=== PATIENT | male | born 1970 | race Caucasian/White ===

== ENCOUNTER 2017-03-02 00:54 | Inpatient (IN) | payer OTHER, MEDICARE ==
[~2017-03-02] VITALS: Ht 180.3 cm; Wt 84.5 kg
[2017-03-02] VITALS (8 sets, daily range): BP systolic 132–188; BP diastolic 72–96; PULSE 61–93; RESP 16–18; TEMP 96–98.5; O2SAT 95–100
[~2017-03-02 00:54] MED LIST: ASPI81 PO; SYNT25TA PO
[2017-03-02] MEDS ORDERED: METO25TA3 PO (01:01)
[2017-03-02] MEDS ORDERED: METF1000 PO (01:01)
[2017-03-02] MEDS ORDERED: PLAV75TA29 PO (01:01)
[2017-03-02] MEDS ORDERED: LISI-519 PO (01:01)
[2017-03-02] MEDS ORDERED: SYNT25TA PO (01:01)
[2017-03-02] MEDS ORDERED: MORPHINE SULFATE 4 MG/ML INJ IV PUSH ONE (01:15)
[2017-03-02] MEDS ORDERED: NALOXONE HCL 0.4 MG/ML AMP IV PRN (02:30)
[2017-03-02] MEDS ORDERED: GLUCAGON 1 MG/ML VIAL OTHER PRN ×2 (02:30→09:45)
[2017-03-02] MEDS ORDERED: DEXT 5%-NACL 0.45% 1000 ML INJ 1,000 ML IV SCH (02:30)
[2017-03-02] MEDS ORDERED: SODIUM CHLORIDE 0.9% FLUSH 10 ML FLUSH IV FLUSH PRN (02:30)
[2017-03-02] MEDS ORDERED: DEXTROSE 50% IN WATER 50 ML VIAL(D50) IV PUSH PRN ×2 (02:30→09:45)
[2017-03-02] MEDS: LEVOFLOXACIN 750 MG PREMIX INJ 150 ML IV SCH (02:37)
[2017-03-02] MEDS ORDERED: LEVOFLOXACIN 750 MG PREMIX INJ 150 ML IV ONE (02:45)
--- NOTE | 2017-03-02 02:49 | PD ---
HPI Chief Complaint: Injury Time Seen by Provider: 01:35 Travel History International Travel<30 days: No Contact w/Intl Traveler<30days: No Traveled to known affect area: No History of Present Illness HPI Patient is a 46-year-old male who was transferred from the hospital for admission to the hospital. Patient was accepted by Dr. Henderson after patient had a workup that for the hospital today. As per patient, he was taking out the trash today, reports that he was turned away a broken birdbath when the birdbath fell and landed on his left foot. xray of his foot showed comminuted fracture of the distal phalanx second toe. There is altered bone densities distal phalanx of the middle toe suspicious for fracture. [facility] did talk to Dr. Almonte with podiatry, patient was transferred to [facility] for surgical intervention [facility] Past Medical History Blood Disorders: No Anxiety: Yes Cancer: No Cardiovascular Problems: No High Cholesterol: Yes Diabetes: Yes Patient Takes Glucophage: Yes (02/29/16 1800) Endocrine: Yes Gastrointestinal Disorders: Yes (COLOSTOMY WITH REVERSAL) Genitourinary: No Hypertension: Yes Immune Disorder: No Musculoskeletal: Yes (LEFT SHOULDER DISLOCATES EASILY) Neurologic: No Psychiatric: Yes Reproductive: No Respiratory: No Thyroid Disease: Yes Tetanus Vaccination: < 5 Years Influenza Vaccination: No Past Surgical History Abdominal Surgery: Yes (APPY WITH COLOSTOMY) Cardiac Surgery: Yes (1 STENT RCA) Pacemaker: No Other Surgery: Yes Social History Alcohol Use: Yes (DAILY) Tobacco Use: Yes (1/2 PPD) Substance Use: No Allergies-Medications (Allergen,Severity, Reaction): Coded Allergies: No Known Allergies (Verified , 03/02/17) Reported Meds & Prescriptions Reported Meds & Active Scripts Active Reported Metformin (Metformin HCl) 1,000 Mg Tab 1,000 Mg PO BIDPC With meals Lisinopril 5 Mg Tab 5 Mg PO DAILY Metoprolol Tartrate 25 Mg Tab 12.5 Mg PO BID Plavix (Clopidogrel Bisulfate) 75 Mg Tab 75 Mg PO DAILY Synthroid (Levothyroxine Sodium) 25 Mcg Tab 25 Mcg PO DAILY Review of Systems General / Constitutional: No: Fever Eyes: No: Visual changes HENT: No: Headaches Cardiovascular: No: Chest Pain or Discomfort Respiratory: No: Shortness of Breath Gastrointestinal: No: Abdominal Pain Genitourinary: No: Dysuria Musculoskeletal: Positive: Pain (left foot pain) Skin: No Rash Neurologic: No: Weakness Psychiatric: No: Depression Endocrine: No: Polydipsia Hematologic/Lymphatic: No: Easy Bruising Physical Exam Narrative GENERAL: nad SKIN: Focused skin assessment warm/dry. HEAD: Atraumatic. Normocephalic. EYES: Pupils equal and round. No scleral icterus. No injection or drainage. ENT: No nasal bleeding or discharge. Mucous membranes pink and moist. NECK: Trachea midline. No JVD. CARDIOVASCULAR: Regular rate and rhythm. No murmur appreciated. RESPIRATORY: No accessory muscle use. Clear to auscultation. Breath sounds equal bilaterally. GASTROINTESTINAL: Abdomen soft, non-tender, nondistended. Hepatic and splenic margins not palpable. MUSCULOSKELETAL: Patient with crush injuries to his left foot, digits #2 and 3 with partial amputations, pulses intact, neurvascularly intact NEUROLOGICAL: Awake and alert. 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 Sign Installer / Telemetry .CONTINUOUS (03/02/17 02:16) Diet Npo (03/02/17 Breakfast) Sodium Chloride 0.9% Flush (Ns Flush) (03/02/17 02:30) Sodium Chloride 0.9% Flush (Ns Flush) (03/02/17 09:00) Basic Metabolic Panel (Bmp) (03/03/17 06:00) Complete Blood Count With Diff (03/03/17 06:00) Prothrombin Time / Inr (Pt) (03/03/17 06:00) Naloxone Inj (Narcan Inj) (03/02/17 02:30) Inpatient Certification (03/02/17 ) Morphine Inj (Morphine Inj) (03/02/17 02:30) Levofloxacin 750 Mg Premix Inj (Levaquin (03/02/17 02:30) Consult Podiatry (03/02/17 ) Dext 5%-Nacl 0.45% 1000 Ml Inj (D5w-1/2 (03/02/17 02:30) Bedside Glucose ALEXANDR.AC&HS (03/02/17 02:19) Blood Glucose Goal (Criteria) (03/02/17 02:19) Hypoglycemia 51 - 69 Mg/Dl (03/02/17 02:19) Hypoglycemia 50 Mg/Dl Or < (03/02/17 02:19) Notify Dr: Other (03/02/17 02:19) Dextrose 50% In Blu (Vial) Inj (D50w (Vi (03/02/17 02:30) Glucagon Inj (Glucagon Inj) (03/02/17 02:30) Admit Order (Ed Use Only) (03/02/17 02:29) MDM Medical Decision Making Medical Screen Exam Complete: Yes Emergency Medical Condition: Yes Interpretation(s) Vital Signs Date Time Temp Pulse Resp B/P Pulse Ox O2 Delivery O2 Flow Rate FiO2 03/02/17 01:59 77 16 158/90 96 Room Air 03/02/17 00:56 98.5 71 16 188/96 100 Differential Diagnosis Open fracture to left foot, digit #2 and 3 Narrative Course 46 old male who was sent to the hospital by [facility] for admission to dr henderson service as well as for surgical intervention by Dr. Vo with podiatry for up until fractures to left foot digits 2 and 3 Call made to who accepts patient to service Call made to Dr. Vo who has patient scheduled for OR at 2 PM tomorrow please refer to [facility] ER records for full medical workup Diagnosis Primary Impression: Open toe fracture Qualified Code: S92.912B - Open fracture of phalanx of toe of left foot, physeal involvement unspecified, unspecified toe, initial encounter Admitting Information Admitting Physician Requests: Admit Maine Phelan DO Mar 02, 2017 02:48
[2017-03-02] MEDS: MORPHINE SULFATE 4 MG/ML INJ IV PUSH PRN ×5 (03:52→22:27)
[2017-03-02] MEDS ORDERED: LORazepam 2 MG/ML VIAL IV PUSH ONE (05:30)
--- NOTE | 2017-03-02 08:29 | RADRPT ---
EXAM DATE/TIME: 03/02/2017 08:10 [place] COMPARISON: No previous studies available for comparison. INDICATIONS : [place] bird bath fell on foot last night. MEDICAL HISTORY : Hypertension. Diabetes mellitus type II. Smoker. SURGICAL HISTORY : None. ENCOUNTER: Initial ACUITY: 2 days PAIN SCORE: 8/10 LOCATION: Left foot, second and third digits. FINDINGS: Bony detail is obscured by saturated bandage material. There do appear to be tuft fractures involving distal phalanges. The bandages will need to be removed for accurate evaluation. The foot appears int act otherwise. CONCLUSION: Suspect tuft fractures involving toes of the left foot. Saturated bandages will need to be removed to evaluate the bony elements adequately. Benjamin Das MD on March 02, 2017 at 8:26 Board Certified Radiologist. This report was verified electronically.
[2017-03-02] MEDS: SODIUM CHLORIDE 0.9% FLUSH 10 ML FLUSH IV FLUSH SCH ×2 (09:00→21:00)
--- NOTE | 2017-03-02 09:28 | HHI.HP ---
[facility] Service [facility] Hospitalists Primary Care Physician [facility] Admission Diagnosis open toe fractures Diagnoses: (1) Open toe fracture (2) Traumatic rhabdomyolysis (3) Diabetes mellitus, type II (4) Hypertension associated with diabetes (5) Hypothyroidism Chief Complaint: Left painful toes Travel History International Travel<30 Days: No Contact w/Intl Traveler <30 Da: No Traveled to Known Affected Are: No History of Present Illness 46 year-old male with a history of diabetes type 2, hypertension, hypothyroidism was transferred from [facility] to [place] for evaluation of fracture left toes s/p mechanical injury. Patient states around 6PM yesterday as he was carrying a birdbath, he broke down and fell landing on his left foot. the patient was immediate and rated 10/10 intensity however there was no initial bleeding; which started after the patient started walking on his feet.He initially went to [facility] then was advised to go to [facility] . Was seen by podiatry x-ray of the foot showed comminuted fracture of the distal phalanx second toe which patient was advised and transferred to [place] post surgical intervention. He Denies any chest pain or shortness of breath Review of Systems Other 12 systems reviewed and are negative except for the one mentioned in history of present illness Past Family Social History Past Medical History Anxiety CAD High Cholesterol Diabetes: Yes Hypertension Hypothyroidism Musculoskeletal: Yes (LEFT SHOULDER DISLOCATES EASILY) Past Surgical History Cardiac stents 1 STENT RCA) Colostomy reversal Reported Medications Metformin (Metformin HCl) 1,000 Mg Tab 1,000 Mg PO BIDPC With meals Lisinopril 5 Mg Tab 5 Mg PO DAILY Metoprolol Tartrate 25 Mg Tab 12.5 Mg PO BID Plavix (Clopidogrel Bisulfate) 75 Mg Tab 75 Mg PO DAILY Synthroid (Levothyroxine Sodium) 25 Mcg Tab 25 Mcg PO DAILY Allergies: Coded Allergies: No Known Allergies (Verified , 03/02/17) Family History Both parents have hypertension, coronary disease, myocardial infarction. Father and 2 sisters with history of thyroid cancer Social History Alcohol Use: Yes (DAILY) Tobacco Use: Yes (1/2 PPD) Substance Use: No Physical Exam Vital Signs Vital Signs Date Time Temp Pulse Resp B/P Pulse Ox O2 Delivery O2 Flow Rate FiO2 03/02/17 07:07 77 16 143/74 95 Room Air 03/02/17 03:00 75 18 154/92 99 Room Air 03/02/17 01:59 77 16 158/90 96 Room Air 03/02/17 00:56 98.5 71 16 188/96 100 Physical Exam GENERAL: This is a well-nourished, well-developed patient, in no apparent distress. SKIN: No rashes, ecchymoses or lesions. Cool and dry. HEAD: Atraumatic. Normocephalic. No temporal or scalp tenderness. EYES: Pupils equal round and reactive. Extraocular motions intact. No scleral icterus. No injection or drainage. ENT: Nose without bleeding, purulent drainage or septal hematoma. Throat without erythema, tonsillar hypertrophy or exudate. Uvula midline. Airway patent. NECK: Trachea midline. No JVD or lymphadenopathy. Supple, nontender, no meningeal signs. CARDIOVASCULAR: Regular rate and rhythm without murmurs, gallops, or rubs. RESPIRATORY: Clear to auscultation. Breath sounds equal bilaterally. No wheezes , rales, or rhonchi. GASTROINTESTINAL: Abdomen soft, non-tender, nondistended. No hepato-splenomegaly , or palpable masses. No guarding. MUSCULOSKELETAL: Extremities without clubbing, cyanosis, or edema. No joint tenderness, effusion, or edema noted. No calf tenderness. Dressing over the left foot-neurovascular intact NEUROLOGICAL: Awake and alert. Cranial nerves II through XII intact. Motor and sensory grossly within normal limits. Five out of 5 muscle strength in all muscle groups. Normal speech. Imaging Last Impressions Foot X-Ray 03/02/17 0000 Signed Impressions: Service Date/Time: February 08:10 - CONCLUSION: Suspect tuft fractures involving toes of the left foot. Saturated bandages will need to be removed to evaluate the bony elements adequately. Benjamin Das MD Assessment and Plan Problem List: (1) Open toe fracture ICD Code: S92.919B Status: Acute (2) Traumatic rhabdomyolysis ICD Code: T79.6XXA Status: Resolved (3) Hypertension associated with diabetes ICD Code: E11.59 Status: Chronic (4) Hypothyroidism ICD Code: E03.9 Status: Chronic (5) Diabetes mellitus, type II ICD Code: E11.9 Status: Chronic (6) Tobacco abuse ICD Code: Z72.0 Status: Chronic (7) Tobacco abuse counseling ICD Code: Z71.6 Status: Resolved (8) Alcohol abuse ICD Code: F10.10 Status: Chronic Assessment and Plan 46-year-old man with Open to fractures: s/p mechanical injury; foot x-ray noted and reviewed by me with finding of Suspect tuft fractures involving toes of the left foot. Podiatry consultation pending for possible amputation. Keep nothing by mouth, IV fluid hydration, analgesic/narcotics when necessary. Hold Plavix and continue empiric IV antibiotic Traumatic rhabdomyolysis: Secondary to mechanical injury, continue aggressive IV fluid hydration and monitor CK Diabetes type 2: Hold oral hypoglycemic agent, start insulin sliding scale with fingerstick blood glucose monitoring. Check A1c Hypertension associated with diabetes type 2: Resume beta robert and lisinopril Hypothyroidism: Resume Synthroid Tobacco abuse: Tobacco counseling was provided, start nicotine patch Alcohol abuse: Patient was counseled, start rally pack,CIWA protocol, seizure precautions. ETOH counsellor consulted DVT prophylaxis: Postprocedure per podiatry Code Status Full code Discussed Condition With Patient Physician Certification 2 Midnight Certification Type: Admission for Inpatient Services Order for Inpatient Services The services are ordered in accordance with Medicare regulations or non- Medicare payer requirements, as applicable. In the case of services not specified as inpatient-only, they are appropriately provided as inpatient services in accordance with the 2-midnight benchmark. Estimated LOS (days): 2 days is the estimated time the patient will need to remain in the hospital, assuming treatment plan goals are met and no additional complications. Post-Hospital Plan: Not yet determined Problem Qualifiers (1) Open toe fracture: Qualified Code: S92.912B - Open fracture of phalanx of toe of left foot, physeal involvement unspecified, unspecified toe, initial encounter Fran Rey MD Mar 02, 2017 09:28
[2017-03-02] MEDS ORDERED: LORazepam 2 MG TAB PO PRN (09:45)
[2017-03-02] MEDS ORDERED: FLUMAZENIL 0.5 MG/5 ML VIAL IV PUSH PRN (09:45)
[2017-03-02] MEDS ORDERED: LORazepam 1 MG TAB PO PRN (09:45)
[2017-03-02] MEDS ORDERED: RESP: ALBUTEROL 2.5 MG/IPRATROPIUM 0.5 MG NEB (PRN) NEB (09:45)
[2017-03-02] MEDS ORDERED: LORazepam 2 MG/ML VIAL IV PUSH PRN ×4 (09:45)
[2017-03-02] MEDS ORDERED: ENALAPRILAT 1.25 MG/ML VIAL IV PUSH PRN (09:45)
[2017-03-02] MEDS: NICOTINE 21 MG/24 HR PATCH T-DERMAL SCH (11:00)
[2017-03-02] MEDS: REMOVE OLD PATCH T-DERMAL SCH (11:00)
[2017-03-02] MEDS: INSULIN ASPART SUPPLEMENTAL SCALE SQ SCH ×3 (11:02→21:00)
[2017-03-02] MEDS ORDERED: NEOSTIGMINE 3 MG/3 ML SYR IV ONE (12:00)
[2017-03-02] MEDS ORDERED: PROPOFOL 200 MG/20 ML AMP IV ONE (12:00)
[2017-03-02] MEDS ORDERED: ONDANSETRON HCL 4 MG/2 ML VIAL IV PUSH ONE (12:00)
[2017-03-02] MEDS ORDERED: BUPIVACAINE HCL PF 0.25% 30 ML VIAL ONE (13:47)
[2017-03-02] MEDS ORDERED: MIDAZOLAM HCL 2 MG/2 ML VIAL ONE (14:01)
[2017-03-02] MEDS ORDERED: fentaNYL CITRATE 250 MCG/5 ML AMP ONE (14:01)
[2017-03-02] MEDS ORDERED: FAMOTIDINE 20 MG/2 ML VIAL ONE (14:02)
[2017-03-02] MEDS ORDERED: ceFAZolin 2 GM PREMIX 50 ML ONE (14:04)
[2017-03-02] MEDS ORDERED: NEOMYCIN/POLYMYXIN 1 ML G.U. IRRIGANT TOPICAL ONE (14:36)
[2017-03-02] MEDS ORDERED: DO NOT ADM ANY ANTICOAGULANT DRUGS PRN (15:15)
[2017-03-02] MEDS: SODIUM CHLOR 0.9% 1000 ML INJ 1,000 ML IV SCH ×2 (16:00→18:45)
[2017-03-02] MEDS: METOPROLOL TARTRATE 25 MG TAB PO SCH (22:22)
[2017-03-03] VITALS: BP 139/85; PULSE 75; RESP 18; TEMP 97.7; O2SAT 100
[2017-03-03] MEDS: ACETAMINOPHEN/HYDROcodone 325 MG/7.5 MG TAB PO PRN ×4 (00:28→16:34)
[2017-03-03] MEDS: SODIUM CHLOR 0.9% 1000 ML INJ 1,000 ML IV SCH ×2 (02:45→10:45)
[2017-03-03] MEDS: LEVOFLOXACIN 750 MG PREMIX INJ 150 ML IV SCH (03:42)
[2017-03-03] MEDS: MORPHINE SULFATE 4 MG/ML INJ IV PUSH PRN (03:43)
[2017-03-03 04:00] VITALS: BP 116/76; PULSE 63; RESP 16; TEMP 96.5; O2SAT 100
[2017-03-03] MEDS ORDERED: LEVOTHYROXINE SODIUM 25 MCG TAB PO SCH (06:00)
[2017-03-03] MEDS: INSULIN ASPART SUPPLEMENTAL SCALE SQ SCH ×2 (07:00→12:53)
[2017-03-03 07:17] LABS: AUTOMATED NEUTROPHIL # 3.2 TH/MM3 (1.8-7.7); BASOPHIL % 0.6 % (0.0-2.0); EOSINOPHIL # 0.1 TH/MM3 (0-0.4); EOSINOPHIL % 2.5 % (0.0-4.0); LYMPH % 25.4 % (9.0-44.0); LYMPHOCYTE # 1.3 TH/MM3 (1.0-4.8); MEAN CELL VOLUME 94.7 FL (80.0-100.0); MEAN CORPUSCULAR HEMOGLOBIN 31.6 PG (27.0-34.0); MEAN CORPUSCULAR HGB CONC 33.3 % (32.0-36.0); MONO % 8.1 % (0.0-8.0); NEUT % 63.4 % (16.0-70.0); PLATELET COUNT 81 TH/MM3 (150-450); RED BLOOD COUNT 4.02 MIL/MM3 (4.50-5.90); RED CELL DISTRIBUTION WIDTH 14.1 % (11.6-17.2)
[2017-03-03 07:27] LABS: INTERNATIONAL NORMALIZED RATIO 1.1 RATIO; PROTHROMBIN TIME - PATIENT 12.4 SEC (9.8-11.6)
[2017-03-03 07:45] LABS: BICARBONATE 30.1 MEQ/L (21.0-32.0); POTASSIUM 3.5 MEQ/L (3.5-5.1)
[2017-03-03 07:56] LABS: HEMO FLAGS AUTO DIFF
[2017-03-03 07:57] LABS: PLATELET ESTIMATE SMEAR LOW (NORMAL); PLATELET MORPHOLOGY NORMAL (NORMAL); SCAN/DIFF AUTO DIFF CONFIRMED
[2017-03-03 08:00] VITALS: BP 121/72; PULSE 78; RESP 20; TEMP 97.6; O2SAT 99
[2017-03-03] MEDS: METOPROLOL TARTRATE 25 MG TAB PO SCH (08:17)
[2017-03-03] MEDS: NICOTINE 21 MG/24 HR PATCH T-DERMAL SCH (08:18)
[2017-03-03] MEDS: REMOVE OLD PATCH T-DERMAL SCH (08:18)
[2017-03-03] MEDS: SODIUM CHLORIDE 0.9% FLUSH 10 ML FLUSH IV FLUSH SCH (08:24)
[2017-03-03 08:25] VITALS: O2SAT 98
[2017-03-03] MEDS ORDERED: LISINOPRIL 5 MG TAB PO SCH (09:00)
[2017-03-03] MEDS ORDERED: MULTIVITAMINS/MINERALS THERAPEUTIC TAB PO SCH (09:00)
[2017-03-03] MEDS ORDERED: FOLIC ACID 1 MG TAB PO SCH (09:00)
[2017-03-03] MEDS ORDERED: THIAMINE HCL 100 MG TAB PO SCH (09:00)
[2017-03-03] MEDS ORDERED: PERI8.6T PO (10:59)
[2017-03-03] MEDS ORDERED: HYDR-3580 PO (10:59)
--- NOTE | 2017-03-03 11:05 | HHI.PR ---
Subjective Remarks Follow-up toes fractures status post amputations 03/03/17-patient seen and examined, status post second and third left toe amputated; pains currently controlled and patient is afebrile. No acute event overnight. Objective Vitals Vital Signs Date Time Temp Pulse Resp B/P Pulse Ox O2 Delivery O2 Flow Rate FiO2 03/03/17 08:25 98 Nasal Cannula 2.00 03/03/17 08:00 97.6 78 20 121/72 99 03/03/17 04:00 96.5 63 16 116/76 100 03/03/17 00:00 97.7 75 18 139/85 100 03/02/17 20:00 97.6 93 16 132/72 100 03/02/17 18:14 100 Nasal Cannula 2.00 03/02/17 17:49 18 03/02/17 17:23 96.0 61 18 137/85 100 03/02/17 15:45 66 12 142/91 99 Nasal Cannula 2 03/02/17 15:30 88 12 158/98 99 Nasal Cannula 2 03/02/17 15:11 97.2 80 15 145/96 99 Nasal Cannula 2 03/02/17 11:03 74 16 154/86 97 Room Air I/O 03/02/17 03/02/17 03/02/17 03/03/17 03/03/17 03/03/17 07:00 15:00 23:00 07:00 15:00 23:00 Intake Total 1280 ml 480 ml Output Total 20 ml Balance 1260 ml 480 ml Intake Oral 780 ml 480 ml IV Total 100 ml Other 400 ml Output Urine Total 0 ml Stool Total 0 ml Estimated Blood Loss 20 ml # Voids 3 # Bowel Movements 0 Result Diagram: 03/03/17 0647 03/03/17 0647 Imaging Last Impressions Foot X-Ray 03/02/17 0000 Signed Impressions: Service Date/Time: February 08:10 - CONCLUSION: Suspect tuft fractures involving toes of the left foot. Saturated bandages will need to be removed to evaluate the bony elements adequately. Benjamin Das MD Objective Remarks GENERAL: NAD SKIN: Warm and dry. HEAD: Normocephalic. EYES: No scleral icterus. No injection or drainage. NECK: Supple, trachea midline. No JVD or lymphadenopathy. CARDIOVASCULAR: Regular rate and rhythm without murmurs, gallops, or rubs. RESPIRATORY: Breath sounds equal bilaterally. No accessory muscle use. GASTROINTESTINAL: Abdomen soft, non-tender, nondistended. MUSCULOSKELETAL: No cyanosis, or edema. dressing over left foot BACK: Nontender without obvious deformity. No CVA tenderness. Procedures Left foot I&D; 2nd and 3rd left toes amputated 03/02/17 A/P Problem List: (1) Open toe fracture ICD Code: S92.919B Status: Acute (2) Traumatic rhabdomyolysis ICD Code: T79.6XXA Status: Resolved (3) Hypertension associated with diabetes ICD Code: E11.59 Status: Chronic (4) Hypothyroidism ICD Code: E03.9 Status: Chronic (5) Diabetes mellitus, type II ICD Code: E11.9 Status: Chronic (6) Tobacco abuse ICD Code: Z72.0 Status: Chronic (7) Tobacco abuse counseling ICD Code: Z71.6 Status: Resolved (8) Alcohol abuse ICD Code: F10.10 Status: Chronic Assessment and Plan 46-year-old man with Open to fractures: s/p mechanical injury; foot x-ray noted and reviewed by me with finding of Suspect tuft fractures involving toes of the left foot. s/p Left foot I&D; 2nd and 3rd left toes amputated 03/02/17. management per Podiatry continue with analgesic/narcotics when necessary. Resume Plavix and continue empiric IV antibiotic. Will need Bactrim DS x 14 days on discharge Traumatic rhabdomyolysis: Secondary to mechanical injury, continue aggressive IV fluid hydration and monitor CK Diabetes type 2: Hold oral hypoglycemic agent, continue insulin sliding scale with fingerstick blood glucose monitoring. A1c pending Hypertension associated with diabetes type 2:continue beta robert and lisinopril Hypothyroidism: continue Synthroid Tobacco abuse: Tobacco counseling was provided, on nicotine patch Alcohol abuse: Patient was counseled, continue rally pack,CIWA protocol, seizure precautions. ETOH counsellor consulted DVT prophylaxis: Postprocedure per podiatry Patient's condition tremendously improved therefore he will be discharged home Discharge Planning Discharge patient to home Condition on discharge: Improved ADA Diet as tolerated Ad Nichole activity Rx written: See EMR Follow-up with primary care physician in one week Follow with podiatry in 1 week wound dressing change per podiatry Problem Qualifiers (1) Open toe fracture: Qualified Code: S92.912B - Open fracture of phalanx of toe of left foot, physeal involvement unspecified, unspecified toe, initial encounter Fran Rey MD Mar 03, 2017 11:05
[2017-03-03 12:00] VITALS: BP 118/64; PULSE 70; RESP 20; TEMP 97.6; O2SAT 97
--- NOTE | 2017-03-03 20:16 | MP ---
cc: CHRIS BLACK DPM DATE OF SURGERY 03/02/17 DATE OF 70 PREOPERATIVE DIAGNOSIS Left foot 2nd and 3rd digit open toe fractures. POSTOPERATIVE DIAGNOSIS Left foot 2nd and 3rd digit open toe fractures. PROCEDURE 1. Incision and debridement left foot. 2. Amputation left partial second digit. 3. Left amputation third partial digit SURGEON Dr. Logan Black [employer] Staff. COMPLICATIONS None. SPECIMEN SENT Left 2nd and 3rd digit to pathology ANESTHESIA General with 16 mL of 0.25 Marcaine plain injected postoperatively. TOURNIQUET TIME 250 mmHg left ankle for 22 minutes INDICATIONS This patient is a 46 year old male with a history of diabetes and hypertension who dropped a cement bird feeder on his left foot on 03/02/17 and sustained open fractures of the distal digits of the left 2nd and 3rd toe with significant bruising of the third digit with questionable salvage. The patient understands the procedure performed today as well as potential risk and complications. All questions were answered. Risks and benefits discussed at length. Consent was signed preoperatively. PROCEDURE IN DETAIL The patient was brought to the operating room, placed on the operating table in supine position. Pneumatic ankle tourniquet was placed about the left ankle. The foot was scrubbed, prepped and draped in usual sterile fashion. Once the patient was anesthetized, first attention was directed in which a fish mouth incision was made around the middle phalanx of both the second and third digits of the left foot and disarticulated at the proximal interphalangeal joints and the toes were sent to pathology for evaluation. Assessing the left fourth digit, the toe had mild purpura and questionable but there were no open fractures. I will leave that toe alone and see how it does postoperatively, but the second and third digits did need amputation. Again, copious irrigation with one liter of antibiotic impregnated saline was used to flush the digits with good soft tissue closure over the remaining proximal phalanx. Vicryl was used to close subcutaneous tissue and nylon was used to close the skin. The skin was well approximated. Again, the fourth digit was left alone. Adaptic soaked in Betadine soaked 4x4s, dry 4x4s, Kerlix, cast padding and Idris was used to wrap the foot. 16 mL of 0.25 Marcaine plain was injected around the area in a Fraire block format of the second and third rays that are proximal to the metatarsal phalangeal joint and the patient handled anesthesia well. DON Finney /3:07 PM /7:58 PM S[facility]
== END 2017-03-03 16:50 | disposition home or self-care (01) | DRG 505 ==
LOC: NEPE 00:54 → NEDA 02:30 → NEDH 06:12 → N06B 14:20
PROVIDERS: ADMIT Hospitalist; ATTEND Hospitalist
PROC: 0Y6U0Z2 Detachment at Left 3rd Toe, Mid, Open Approach (ICD-10-PCS; 2017-03-02)
PROC: 0Y6S0Z2 Detachment at Left 2nd Toe, Mid, Open Approach (ICD-10-PCS; principal; 2017-03-02 14:06)
DX: S92.532B Displaced fracture of distal phalanx of left lesser toe(s), initial encounter for open fracture (principal); I10 Essential (primary) hypertension; T79.6XXA Traumatic ischemia of muscle, initial encounter; W22.8XXA Striking against or struck by other objects, initial encounter; Y92.9 Unspecified place or not applicable; Y93.89 Activity, other specified; E03.9 Hypothyroidism, unspecified; E78.00 Pure hypercholesterolemia, unspecified; F41.9 Anxiety disorder, unspecified; I25.10 Atherosclerotic heart disease of native coronary artery without angina pectoris; Z95.5 Presence of coronary angioplasty implant and graft; Z79.02 Long term (current) use of antithrombotics/antiplatelets; E11.9 Type 2 diabetes mellitus without complications; Z79.84 Long term (current) use of oral hypoglycemic drugs; F10.10 Alcohol abuse, uncomplicated; F17.210 Nicotine dependence, cigarettes, uncomplicated
CPT/HCPCS: 73630; 80048; 82550; 82948; 85025; 85610; 88305; 88311; 96374; J0690; J1815; J1956; J2060; J2250; J2270; J2405; J2710; J3010; J7030; L3260

== ENCOUNTER 2017-10-26 11:25 | Observation (INO) | payer OTHER, MEDICARE ==
[~2017-10-26] VITALS: Ht 180.3 cm; Wt 70.0 kg
[~2017-10-26 11:25] MED LIST changes: -ASPI81 PO; +HYDR-3580 PO; +LISI-519 PO; +METF1000 PO; +METO25TA3 PO; +PERI8.6T PO; +PLAV75TA29 PO
[2017-10-26 11:36] VITALS: BP 144/99; PULSE 103; RESP 16; TEMP 98.9; O2SAT 98
[2017-10-26] MEDS ORDERED: SODIUM CHLOR 0.9% 1000 ML INJ 1,000 ML IV SCH (12:10)
[2017-10-26] MEDS ORDERED: SODIUM CHLORIDE 0.9% FLUSH 10 ML FLUSH IV FLUSH PRN ×2 (12:15→16:30)
--- NOTE | 2017-10-26 12:23 | PD ---
HPI Chief Complaint: Abdominal Pain Time Seen by Provider: 12:06 Travel History International Travel<30 days: No Contact w/Intl Traveler<30days: No Traveled to known affect area: No History of Present Illness HPI 47-year-old male presents to the emergency department with complaint of left lower quadrant abdominal pain 3 days. Worsening of abdominal pain today with vomiting this morning. Arrived via EMS. History of pancreatitis. EMS gave Zofran prior to arrival with relief of nausea. Reports lightheadedness and dizziness. Said he felt like he was going to pass out. Denies dysuria or urinary frequency. Denies dysuria. Says he felt chest tightness while he was on the ambulance. Denies chest pain or shortness of breath at this time. Reports feeling like his heart is fluttering. Rates pain 7/10. His been taking Aleve for symptom management. Describes it as a sharp pain. Reports occasional alcohol use. Drank alcohol last night. Denies illicit drug use. Reports tobacco use. Denies history of abdominal surgeries. No known allergies. Primary care provider is the [facility]. History of pancreatitis, insulin-dependent diabetes mellitus, hypothyroidism, hypertension, DC with stent placement. Has no other medical complaints. No other modifying factors or associated signs and symptoms. PFSH Past Medical History Blood Disorders: No Anxiety: Yes Cancer: No Cardiovascular Problems: Yes (HTN, CORONARY STENT ) High Cholesterol: Yes Diabetes: Yes Patient Takes Glucophage: Yes (metformin ) Endocrine: Yes Gastrointestinal Disorders: Yes (COLOSTOMY WITH REVERSAL) Genitourinary: No Hypertension: Yes Immune Disorder: No Musculoskeletal: Yes (LEFT SHOULDER DISLOCATES EASILY) Neurologic: No Psychiatric: Yes Reproductive: No Respiratory: No Thyroid Disease: Yes ?: Not Past Surgical History Abdominal Surgery: Yes (APPY WITH COLOSTOMY) Cardiac Surgery: Yes (1 STENT RCA) Pacemaker: No Other Surgery: Yes Social History Alcohol Use: Yes (hx of daily use. now occ ) Tobacco Use: Yes (1/2 PPD) Substance Use: No Allergies-Medications (Allergen,Severity, Reaction): Coded Allergies: No Known Allergies (Verified Adverse Reaction, Unknown, 10/26/17) Reported Meds & Prescriptions Reported Meds & Active Scripts Active Puja-Colace (Sennosides-Docusate Sodium) 8.6-50 Mg Tab 1 Tab PO BID PRN Hydrocodone-Acetaminophen 7.5-325 mg Tab 1 Tab PO Q6H PRN Reported Metformin (Metformin HCl) 1,000 Mg Tab 1,000 Mg PO BIDPC With meals Lisinopril 5 Mg Tab 5 Mg PO DAILY Metoprolol Tartrate 25 Mg Tab 12.5 Mg PO BID Plavix (Clopidogrel Bisulfate) 75 Mg Tab 75 Mg PO DAILY Synthroid (Levothyroxine Sodium) 25 Mcg Tab 25 Mcg PO DAILY Review of Systems Except as stated in HPI: all other systems reviewed are Neg Physical Exam Narrative GENERAL: Well-nourished, well-developed male patient, in no acute distress; afebrile SKIN: Warm and dry. HEAD: Atraumatic. Normocephalic. EYES: Pupils equal and round. No scleral icterus. No injection or drainage. ENT: Mucosa pink and moist. Airway patent. NECK: Trachea midline. CARDIOVASCULAR: Regular rate and rhythm. No murmur appreciated. RESPIRATORY: No accessory muscle use. Clear to auscultation. Breath sounds equal bilaterally. GASTROINTESTINAL: Abdomen soft, tenderness on palpation to eft lower quadrant, nondistended. Hepatic and splenic margins not palpable. Bowel sounds are active 4 quadrants. Nonrigid. No guarding. MUSCULOSKELETAL: No obvious deformities. No clubbing. No cyanosis. No edema. NEUROLOGICAL: Awake and alert. Oriented 3. No obvious cranial nerve deficits. Motor grossly within normal limits. Normal speech. PSYCHIATRIC: Appropriate mood and affect; insight and judgment normal. Data Data Last Documented VS Vital Signs Date Time Temp Pulse Resp B/P (MAP) Pulse Ox O2 Delivery O2 Flow Rate FiO2 10/26/17 11:36 98.9 103 16 144/99 (114) 98 Room Air Orders Orders Complete Blood Count With Diff (10/26/17 12:10) Comprehensive Metabolic Panel (10/26/17 12:10) Lipase (10/26/17 12:10) Urinalysis - C+S If Indicated (10/26/17 12:10) Iv Access Insert/Monitor (10/26/17 12:10) Ecg Monitoring (10/26/17 12:10) Oximetry (10/26/17 12:10) Sodium Chlor 0.9% 1000 Ml Inj (Ns 1000 M (10/26/17 12:10) Sodium Chloride 0.9% Flush (Ns Flush) (10/26/17 12:15) Electrocardiogram (10/26/17 12:24) Troponin I (10/26/17 12:26) Ct Abd/Pel W Iv Contrast(Rout) (10/26/17 14:07) Ketorolac Inj (Toradol Inj) (10/26/17 14:30) Iohexol 350 Inj (Omnipaque 350 Inj) (10/26/17 15:23) Admit Order (Ed Use Only) (10/26/17 16:12) Labs Laboratory Tests Test 10/26/17 10:40 10/26/17 12:28 10/26/17 12:50 Troponin I LESS THAN 0.02 NG/ML White Blood Count 7.7 TH/MM3 Red Blood Count 4.49 MIL/MM3 Hemoglobin 14.3 GM/DL Hematocrit 40.7 % Mean Corpuscular Volume 90.6 FL Mean Corpuscular Hemoglobin 31.9 PG Mean Corpuscular Hemoglobin Concent 35.2 % Red Cell Distribution Width 14.1 % Platelet Count 160 TH/MM3 Mean Platelet Volume 8.1 FL Neutrophils (%) (Auto) 70.6 % Lymphocytes (%) (Auto) 20.7 % Monocytes (%) (Auto) 7.3 % Eosinophils (%) (Auto) 0.8 % Basophils (%) (Auto) 0.6 % Neutrophils # (Auto) 5.4 TH/MM3 Lymphocytes # (Auto) 1.6 TH/MM3 Monocytes # (Auto) 0.6 TH/MM3 Eosinophils # (Auto) 0.1 TH/MM3 Basophils # (Auto) 0.0 TH/MM3 CBC Comment DIFF FINAL Differential Comment Blood Urea Nitrogen 9 MG/DL Creatinine 0.82 MG/DL Random Glucose 271 MG/DL Total Protein 7.4 GM/DL Albumin 4.0 GM/DL Calcium Level 9.4 MG/DL Alkaline Phosphatase 119 U/L Aspartate Amino Transf (AST/SGOT) 21 U/L Alanine Aminotransferase (ALT/SGPT) 26 U/L Total Bilirubin 0.7 MG/DL Sodium Level 134 MEQ/L Potassium Level 4.6 MEQ/L Chloride Level 99 MEQ/L Carbon Dioxide Level 27.3 MEQ/L Anion Gap 8 MEQ/L Estimat Glomerular Filtration Rate 101 ML/MIN Lipase 55 U/L Urine Color YELLOW Urine Turbidity CLEAR Urine pH 5.5 Urine Specific [place] 1.037 Urine Protein TRACE mg/dL Urine Glucose (UA) 1000 mg/dL Urine Ketones 10 mg/dL Urine Occult Blood NEG Urine Nitrite NEG Urine Bilirubin NEG Urine Urobilinogen LESS THAN 2.0 MG/DL Urine Leukocyte Esterase NEG Urine RBC LESS THAN 1 /hpf Urine WBC 1 /hpf Urine Squamous Epithelial Cells <1 /hpf Urine Mucus FEW /lpf Microscopic Urinalysis Comment CULT NOT INDICATED MDM Medical Decision Making Medical Screen Exam Complete: Yes Emergency Medical Condition: Yes Medical Record Reviewed: Yes Differential Diagnosis Pancreatitis, diverticulitis, gastritis, chest pain Narrative Course 47-year-old male arrives via EMS with left lower quadrant abdominal pain. Reports chest tightness while on the ambulance. Denies chest pain or shortness of breath at this time. Has history of DC with stent placement. I discussed the patient with Dr. Erickson and he agrees with my plan of care. CBC, CMP, lipase , troponin, EKG, chest x-ray, normal saline bolus 1238: EKG was normal sinus rhythm; without ST elevation or depression; reviewed by Dr. Erickson. 1410: CBC unremarkable. Troponin less than 0.02. Lipase 55. Glucose 271. Urinalysis without signs of infection. 1605: CT abdomen/pelvis concludes: Abdomen/Pelvis CT 10/26/17 1407 Signed Impressions: Service Date/Time: October 15:12 - CONCLUSION: 1. There is an 8.5 cm ovoid low density collection at the expected location of the tail of the pancreas. This most likely represents a pancreatic pseudocyst given the pancreatic findings characteristic of chronic pancreatitis including atrophy, duct dilatation, and calcification. There are no imaging findings to suggest that it is infected. 2. 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 There are multiple enlarged perigastric collateral blood vessels. 1. Benjamin Major MD I discussed CT findings with the patient and provided the patient with a copy of the CT report. I discussed being discharged home and outpatient follow-up in regards to chest pain and the patient opted to be admitted to the chest pain center for continued treatment and evaluation. Physician Communication Physician Communication [employer] DRIVER Diagnosis Primary Impression: Abdominal pain, left lower quadrant Additional Impression: Chest pain Qualified Codes: R07.9 - Chest pain, unspecified Admitting Information Admitting Physician Requests: Observation Fidelia Flores INSPECTOR [employer]YS Oct 26, 2017 12:23
[2017-10-26 13:12] LABS: AUTOMATED NEUTROPHIL # 5.4 TH/MM3 (1.8-7.7); BASOPHIL % 0.6 % (0.0-2.0); EOSINOPHIL # 0.1 TH/MM3 (0-0.4); EOSINOPHIL % 0.8 % (0.0-4.0); HEMATOCRIT 40.7 % (39.0-51.0); HEMO FLAGS DIFF FINAL; LYMPH % 20.7 % (9.0-44.0); LYMPHOCYTE # 1.6 TH/MM3 (1.0-4.8); MEAN CELL VOLUME 90.6 FL (80.0-100.0); MEAN CORPUSCULAR HEMOGLOBIN 31.9 PG (27.0-34.0); MEAN CORPUSCULAR HGB CONC 35.2 % (32.0-36.0); MONO % 7.3 % (0.0-8.0); NEUT % 70.6 % (16.0-70.0); PLATELET COUNT 160 TH/MM3 (150-450); RED BLOOD COUNT 4.49 MIL/MM3 (4.50-5.90); RED CELL DISTRIBUTION WIDTH 14.1 % (11.6-17.2); WHITE BLOOD COUNT 7.7 TH/MM3 (4.0-11.0)
[2017-10-26 13:25] LABS: BLOOD, URINE NEG (NEG); COMMENT (UR) CULT NOT INDICATED; CULTURE IF INDICATED CULT NOT INDICATED; GLUCOSE,URINE 1000 mg/dL (NEG); KETONE, URINE 10 mg/dL (NEG); MUCUS URINE FEW /lpf (OCC); NITRITE,URINE NEG (NEG); PH, URINE 5.5 (5.0-8.5); SQUAMOUS EPITHELIAL CELL URINE <1 /hpf (0-5); URINE COLOR YELLOW (YELLW/STRAW)
[2017-10-26 13:29] LABS: ANION GAP 8 MEQ/L (5-15); AST (GOT) 21 U/L (15-37); BICARBONATE 27.3 MEQ/L (21.0-32.0); BLOOD UREA NITROGEN 9 MG/DL (7-18); CHLORIDE 99 MEQ/L (98-107); GLOMERULAR FILTRATION RATE 101 ML/MIN (>89); POTASSIUM 4.6 MEQ/L (3.5-5.1); SODIUM (NA) 134 MEQ/L (136-145)
[2017-10-26 13:32] LABS: ALKALINE PHOSPHATASE 119 U/L (45-117); ALT (GPT) 26 U/L (12-78); TOTAL BILIRUBIN ADULT 0.7 MG/DL (0.2-1.0)
[2017-10-26] MEDS ORDERED: KETOROLAC TROMETHAMINE 30 MG/ML (IVP) VIAL IV PUSH ONE (14:30)
[2017-10-26] MEDS ORDERED: IOHEXOL 350 MG/ML 10 ML VIAL (for RAD DIAG) IVCONTRAST ONE (15:23)
--- NOTE | 2017-10-26 15:47 | RADRPT ---
EXAM DATE/TIME: 10/26/2017 15:12 [facility] COMPARISON: No previous studies available for comparison. INDICATIONS : Left upper quadrant pain. IV CONTRAST: 82 cc Omnipaque 350 (iohexol) IV ORAL CONTRAST: No oral contrast ingested. RADIATION DOSE: 6.23 CTDIvol (mGy) MEDICAL HISTORY : Hypertension. Cardiovascular disease Pancreatitis. SURGICAL HISTORY : None. ENCOUNTER: Initial ACUITY: 3 days PAIN SCALE: 6/10 LOCATION: Left upper quadrant TECHNIQUE: Volumetric scanning of the abdomen and pelvis was performed. Using automated exposure control and ad justment of the mA and/or kV according to patient size, radiation dose was kept as low as reasonably achievable to obtain optimal diagnostic quality images. DICOM format image data is available electro nically for review and comparison. FINDINGS: LOWER LUNGS: The visualized lower lungs are clear. LIVER: Homogeneous density without lesion. There is no dilation of the biliary tree. No calcified gallston es. SPLEEN: Normal size without lesion. PANCREAS: The pancreas is abnormal. It is atrophic with little normal pancreatic tissue visualized. There are d iffuse incre calcifications. The main pancreatic duct is dilated in the body measuring up to 8 mm. Th ere is an ovoid low-density collection occupying the location of the tail of the pancreas and measuri ng 8.5 x 4.1 cm. It also abuts the right greater curvature of the stomach. It contains no air and the re are no surrounding inflammatory changes. KIDNEYS: Normal in size and shape. There is no mass, stone or hydronephrosis. ADRENAL GLANDS: Within normal limits. VASCULAR: There is no aortic aneurysm. There is mild atherosclerotic disease. Enlarged collateral blood vessels are present around the stomach and there is high-grade stenosis versus occlusion of the splenic vein . BOWEL/MESENTERY: The stomach and small bowel demonstrate no acute finding. There has been prior surgery in the sigmoid colon with a bowel staple line visualized. The segment is enlarged. There is a large amount of stool throughout the colon. No free air or free fluid is present. ABDOMINAL WALL: Postsurgical changes are present with small fat-containing periumbilical hernia. RETROPERITONEUM: There is no lymphadenopathy. BLADDER: No wall thickening or mass. REPRODUCTIVE: Within normal limits. INGUINAL: There is no lymphadenopathy or hernia. MUSCULOSKELETAL: There is degenerative changes of the lumbar spine with pars defects at L5. CONCLUSION: 1. There is an 8.5 cm ovoid low density collection at the expected location of the tail of the pancre as. This most likely represents a pancreatic pseudocyst given the pancreatic findings characteristic of chronic pancreatitis including atrophy, duct dilatation, and calcification. There are no imaging f indings to suggest that it is infected. 2. 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 There are multiple enlarge d perigastric collateral blood vessels. 1. Benjamin Major MD on October 26, 2017 at 15:39 Board Certified Radiologist. This report was verified electronically.
[2017-10-26] MEDS ORDERED: GLUCAGON 1 MG/ML VIAL OTHER PRN (16:30)
[2017-10-26] MEDS ORDERED: DEXTROSE 50% IN WATER 50 ML VIAL(D50) IV PUSH PRN (16:30)
[2017-10-26] MEDS ORDERED: RESP: ALBUTEROL 2.5 MG/3 ML NEB (PRN) NEB (16:30)
[2017-10-26] MEDS ORDERED: ONDANSETRON HCL 4 MG/2 ML VIAL IV PUSH PRN (16:30)
[2017-10-26] MEDS ORDERED: NITROGLYCERIN 0.4 MG SL 25 TABS/BTL SL PRN (16:30)
[2017-10-26] MEDS ORDERED: ACETAMINOPHEN 500 MG CPLT PO PRN (16:30)
[2017-10-26] MEDS ORDERED: PILL SPLITTER OTHER PRN (16:45)
[2017-10-26] MEDS: INSULIN ASPART SUPPLEMENTAL SCALE SQ SCH ×2 (17:00→21:09)
--- NOTE | 2017-10-26 17:02 | EKG ---
Date Performed: 10/26/2017 Time Performed: 12:32:23 PTAGE: 47 years EKG: Sinus rhythm NORMAL ECG No significant change from prior electrocardiogram. PREVIOUS TRACING : 03/25/2011 06.08 DOCTOR: Maizn Talley Interpretating Date/Time 10/26/2017 17:01:02
[2017-10-26 17:47] LABS: CREATINE KINASE 122 U/L (39-308)
[2017-10-26 17:59] LABS: CKMB 1.3 NG/ML (0.5-3.6)
--- NOTE | 2017-10-26 18:58 | EKG ---
Date Performed: 10/26/2017 Time Performed: 16:51:59 PTAGE: 47 years EKG: Sinus rhythm NORMAL ECG No significant change from prior electrocardiogram. PREVIOUS TRACING : 10/26/2017 12.32 DOCTOR: Mazin Talley Interpretating Date/Time 10/26/2017 18:57:09
[2017-10-26 19:39] VITALS: BP 142/79; PULSE 76; RESP 18; TEMP 98.4; O2SAT 97
[2017-10-26] MEDS: METOPROLOL TARTRATE 25 MG TAB PO SCH (21:08)
[2017-10-26] MEDS: SODIUM CHLORIDE 0.9% FLUSH 10 ML FLUSH IV FLUSH SCH (21:08)
[2017-10-26 21:27] LABS: CREATINE KINASE 117 U/L (39-308)
[2017-10-26 21:39] LABS: CKMB 0.8 NG/ML (0.5-3.6)
[2017-10-26 23:35] VITALS: BP 132/81; PULSE 65; RESP 18; TEMP 98.1; O2SAT 98
[2017-10-27 03:41] VITALS: BP 130/74; PULSE 67; RESP 18; TEMP 98.1; O2SAT 98
[2017-10-27 07:08] VITALS: BP 132/84; PULSE 66; RESP 16; TEMP 98.2; O2SAT 96
--- NOTE | 2017-10-27 08:24 | HHI.HP ---
HPI Primary Care Physician [facility] Chief Complaint Chest tightness History of Present Illness 47-year-old male with history of type 2 diabetes insulin-dependent, coronary artery disease, and tobacco use presents to emergency room for further evaluation of chest tightness. Onset yesterday afternoon while riding bike developed dizziness, he stopped at closest fire station. Reporting heart pounding once arrived at fire station. Transported via [facility] to ER. On way to hospital developed left anterior chest tightness. Moderate severity. No radiation. Duration was constant. Associated symptoms initially included nausea, dyspnea, and diaphoresis. Associated symptoms lasted approximately 20 minutes. No known precipitating or relieving factors. Did not hurt to take a deep breath. No recent illness, fever, or coughing. Endorses similar pain in the past. Also reporting 3 days of generalized abdominal discomfort described as sharp. CT abdomen and pelvis completed in ER and was told to follow-up with PCP after discharge. Reports known pseudocyst in pancreas and was to have area biopsy last year. Unfortunately he missed that appointment. The rescheduled appointment is gradual for next month. Review of Systems General: No fatigue,weakness, fever, chills, or recent illness. Has been his general state of health. HEENT: No RODRIGUEZ CV: As stated above. No current chest pain, palpitations, or pressure. Dizziness has resolved. RESP: No SOB, cough, or recent URI GI: No nausea, vomiting, or bowel changes. History of pancreatitis. Known pseudocyst on pancreas. Missed appointment last November for biopsy. Follow-up appointment is scheduled for next month.. : No dysuria, urgency, frequency EXT: No lower leg edema MS: No discomfort or change in ROM NEURO: No difficulty with balance, LOC, motor/sensory deficits PSYCH: No anxiety, depression, or suicidal ideation. Endorses current situational stress over the past year, , 2 friends , and his dog . Endorses binge drinking to cope. SKIN: No rashes, no concerning lesions Past Family Social History Allergies: Coded Allergies: No Known Allergies (Verified Adverse Reaction, Unknown, 10/26/17) Past Medical History Pancreatitis, type 2 [id number], hypothyroidism, coronary artery disease, x1 cardiac stent, tobacco abuse, alcohol abuse Past Surgical History Cholecystectomy with reversal, appendectomy Reported Medications Reported Meds & Active Scripts Active Metformin (Metformin HCl) 1,000 Mg Tab 1,000 Mg PO BIDPC With meals Lisinopril 5 Mg Tab 5 Mg PO DAILY Metoprolol Tartrate 25 Mg Tab 12.5 Mg PO BID Synthroid (Levothyroxine Sodium) 25 Mcg Tab 25 Mcg PO DAILY Aspirin 81 mg by mouth daily Lantus 18 units daily at bedtime Statin medication daily name unknown Active Ordered Medications Current Medications Medications (Trade) Dose Ordered Sig/Sb Route Start Time Stop Time Status Last Admin (NS Flush) 2 ml UNSCH PRN IV FLUSH 10/26/17 12:15 (NS Flush) 2 ml UNSCH PRN IV FLUSH 10/26/17 16:30 (NS Flush) 2 ml BID IV FLUSH 10/26/17 21:00 10/26/17 21:08 (Tylenol) 500 mg Q4H PRN PO 10/26/17 16:30 10/26/17 21:10 (Zofran Inj) 4 mg Q6H PRN IV PUSH 10/26/17 16:30 (Nitrostat Sl) 0.4 mg Q5M PRN SL 10/26/17 16:30 10/26/17 22:10 (Aspirin) 325 mg DAILY PO 10/27/17 09:00 (D50w (Vial) Inj) 50 ml UNSCH PRN IV PUSH 10/26/17 16:30 (Glucagon Inj) 1 mg UNSCH PRN OTHER 10/26/17 16:30 (NovoLOG SUPPLEMENTAL SCALE) 1 ACHS SLIDING SCALE SQ 10/26/17 17:00 10/26/17 21:09 (Albuterol Neb) 2.5 mg Q2HR NEB PRN NEB 10/26/17 16:30 (Synthroid) 25 mcg DAILY PO 10/27/17 09:00 (Prinivil) 5 mg DAILY PO 10/27/17 09:00 (Lopressor) 12.5 mg BID PO 10/26/17 21:00 10/26/17 21:08 (Pill Splitter) 1 ea UNSCH PRN OTHER 10/26/17 16:45 Family History Positive for early onset cardiovascular disease. Father several myocardial infarctions beginning in his early 30s. Mother coronary bypass in her early 60s Social History Known coronary artery disease and diabetes. Reporting diabetes to be uncontrolled. On appropriate CHUCHO and statin therapy. Current smoker approximately one pack daily. Endorses intermittent binge drinking, followed by periods without alcohol. Single. Self-employed. Endorses an active lifestyle. Past cardiac testing Cardiac catheterization 2016 Dr. Yvonne Lewis-x1 cardiac stent placed RCA. Reports cardiac catheterization was completed due to abnormal nuclear cardiac test. Currently does not follow with a transport tank technician. Physical Exam Vital Signs Vital Signs Date Time Temp Pulse Resp B/P (MAP) Pulse Ox O2 Delivery O2 Flow Rate FiO2 10/27/17 07:08 98.2 66 16 132/84 (100) 96 10/27/17 03:41 98.1 67 18 130/74 (92) 98 10/27/17 01:11 21 10/26/17 23:35 98.1 65 18 132/81 (98) 98 10/26/17 19:39 98.4 76 18 142/79 (100) 97 10/26/17 17:02 10/26/17 11:36 98.9 103 16 144/99 (114) 98 Room Air Physical Exam GENERAL: Alert WN, WD, NAD, pleasant, male who appears older than stated age. HEAD: NC, AT EYES: Sclera clear, conjunctiva without injection ENT: Mucous membranes pink and moist NECK: Supple, no masses, trachea midline CV: RRR, without murmur, rub, gallop, no JVD, S1-S2 no S3-S4. No carotid bruits. RESP: Clear lungs throughout bilateral, no crackles, wheeze, rhonchi, symmetrical chest rise, nonlabored, able to speak in full sentences ABD: Soft, NT, ND, no masses, positive bowel tones EXT: Pulses +14, no dependent edema MS: Normal tone 4 extremities, no obvious deformities, full range of motion, left foot x2 amputated toes. NEURO: CN II through CN XII grossly intact, motor strength 5/5 PSYCH: A+O 3, pleasant affect, appropriate speech,mood, insight and judgment SKIN: Normal turgor, normal texture, no lesions, no rashes Laboratory Laboratory Tests Test 10/26/17 10:40 10/26/17 12:28 10/26/17 12:50 10/26/17 16:47 Troponin I LESS THAN 0.02 LESS THAN 0.02 White Blood Count 7.7 Red Blood Count 4.49 Hemoglobin 14.3 Hematocrit 40.7 Mean Corpuscular Volume 90.6 Mean Corpuscular Hemoglobin 31.9 Mean Corpuscular Hemoglobin Concent 35.2 Red Cell Distribution Width 14.1 Platelet Count 160 Mean Platelet Volume 8.1 Neutrophils (%) (Auto) 70.6 Lymphocytes (%) (Auto) 20.7 Monocytes (%) (Auto) 7.3 Eosinophils (%) (Auto) 0.8 Basophils (%) (Auto) 0.6 Neutrophils # (Auto) 5.4 Lymphocytes # (Auto) 1.6 Monocytes # (Auto) 0.6 Eosinophils # (Auto) 0.1 Basophils # (Auto) 0.0 CBC Comment DIFF FINAL Differential Comment Blood Urea Nitrogen 9 Creatinine 0.82 Random Glucose 271 Total Protein 7.4 Albumin 4.0 Calcium Level 9.4 Alkaline Phosphatase 119 Aspartate Amino Transf (AST/SGOT) 21 Alanine Aminotransferase (ALT/SGPT) 26 Total Bilirubin 0.7 Sodium Level 134 Potassium Level 4.6 Chloride Level 99 Carbon Dioxide Level 27.3 Anion Gap 8 Estimat Glomerular Filtration Rate 101 Lipase 55 Urine Color YELLOW Urine Turbidity CLEAR Urine pH 5.5 Urine Specific [place] 1.037 Urine Protein TRACE Urine Glucose (UA) 1000 Urine Ketones 10 Urine Occult Blood NEG Urine Nitrite NEG Urine Bilirubin NEG Urine Urobilinogen LESS THAN 2.0 Urine Leukocyte Esterase NEG Urine RBC LESS THAN 1 Urine WBC 1 Urine Squamous Epithelial Cells <1 Urine Mucus FEW Microscopic Urinalysis Comment CULT NOT INDICATED Total Creatine Kinase 122 Creatine Kinase MB 1.3 Test 10/26/17 20:10 Total Creatine Kinase 117 Creatine Kinase MB 0.8 Troponin I LESS THAN 0.02 Result Diagram: 10/26/17 1228 10/26/17 1228 Imaging Last Impressions Myocardial Perfusion Scan Nuc Med 10/27/17 0000 Signed Impressions: Service Date/Time: Friday, October 27, 2017 11:02 - CONCLUSION: No reversible perfusion defects to suggest ischemia. Normal ejection fraction. RISK CATEGORY : Low (<1%% Annual Mortality Rate) Fran Medrano MD Abdomen/Pelvis CT 10/26/17 1407 Signed Impressions: Service Date/Time: October 15:12 - CONCLUSION: 1. There is an 8.5 cm ovoid low density collection at the expected location of the tail of the pancreas. This most likely represents a pancreatic pseudocyst given the pancreatic findings characteristic of chronic pancreatitis including atrophy, duct dilatation, and calcification. There are no imaging findings to suggest that it is infected. 2. 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 There are multiple enlarged perigastric collateral blood vessels. 1. Benjamin Major MD Course EKG Normal sinus rhythm, normal axis, no ST or T-segment changes Caprini VTE Risk Assessment Caprini VTE Risk Assessment: No/Low Risk (score <= 1) Caprini Risk Assessment Model Point Value = 1 Point Value = 2 Point Value = 3 Point Value = 5 Age 41-60 Minor surgery BMI > 25 kg/m2 Swollen legs Varicose veins or History of unexplained or recurrent spontaneous Oral contraceptives or hormone replacement Sepsis (< 1 month) Serious lung disease, including pneumonia (< 1 month) Abnormal pulmonary function Acute myocardial infarction Congestive heart failure (< 1 month) History of inflammatory bowel disease Medical patient at bed rest Age 61-74 Arthroscopic surgery Major open surgery (> 45 min) Laparoscopic surgery (> 45 min) Malignancy Confined to bed (> 72 hours) Immobilizing plaster cast Central venous access Age >= 75 History of VTE Family history of VTE Factor V Leiden Prothrombin [id number] Lupus anticoagulant Anticardiolipin antibodies Elevated serum homocysteine Heparin-induced thrombocytopenia Other congenital or acquired thrombophilia Stroke (< 1 month) Elective arthroplasty Hip, pelvis, or leg fracture Acute spinal cord injury (< 1 month) Prophylaxis Regimen Total Risk Factor Score Risk Level Prophylaxis Regimen 0-1 Low Early ambulation 2 Moderate Order ONE of the following: *Sequential Compression Device (SCD) *Heparin 5000 units SQ BID 3-4 Higher Order ONE of the following medications: *Heparin 5000 units SQ TID *Enoxaparin/Lovenox 40 mg SQ daily (WT < 150 kg, CrCl > 30 mL/min) *Enoxaparin/Lovenox 30 mg SQ daily (WT < 150 kg, CrCl > 10-29 mL/min) *Enoxaparin/Lovenox 30 mg SQ BID (WT < 150 kg, CrCl > 30 mL/min) AND/OR *Sequential Compression Device (SCD) 5 or more Highest Order ONE of the following medications: *Heparin 5000 units SQ TID (Preferred with Epidurals) *Enoxaparin/Lovenox 40 mg SQ daily (WT < 150 kg, CrCl > 30 mL/min) *Enoxaparin/Lovenox 30 mg SQ daily (WT < 150 kg, CrCl > 10-29 mL/min) *Enoxaparin/Lovenox 30 mg SQ BID (WT < 150 kg, CrCl > 30 mL/min) AND *Sequential Compression Device (SCD) Assessment and Plan Assessment and Plan #1 Chest pain-admitted to chest pain center. Ruled out with 3 sets of EKGs, cardiac enzymes, monitor overnight. Seen and evaluated by Dr. Kel Guillaume. Discussed most likely will proceed with chemical stress test later this morning. Will attempt to obtain coronary catheterization medical records from [facility]. If stress test unremarkable, plan would be to discharge home with follow-up with PCP and reestablish with a transport tank technician. Patient agreeable to plan of care. #2 History of CAD-continue Metoprolol and aspirin. Discussed importance of following with a transport tank technician due to history of coronary artery disease. Patient verbalizes understanding. #3 Type II DM-SSI low dose coverage, upon discharge resume Lantus, metformin, and lisinopril #4 Tobacco use-strongly encouraged and stressed the importance of tobacco cessation. Instructed him to quit smoking. Informed of cardiovascular risk of tobacco, especially with known history of coronary artery disease. #5 Alcohol abuse-discussed current guidelines of alcohol use to be no more than 2 drinks daily, however with his history of pancreatitis and pseudocyst in pancreas he would benefit from alcohol abstinence. Patient verbalized understanding. Keep follow-up appointment with GI specialist next month to reassess pseudocyst and chronic pancreatitis. Katie Casillas Oct 27, 2017 08:24
[2017-10-27 08:31] VITALS: PULSE 64
[2017-10-27] MEDS ORDERED: ASPIRIN 325 MG TAB PO SCH (09:00)
[2017-10-27] MEDS ORDERED: LEVOTHYROXINE SODIUM 25 MCG TAB PO SCH (09:00)
[2017-10-27] MEDS ORDERED: LISINOPRIL 5 MG TAB PO SCH (09:00)
[2017-10-27] MEDS: SODIUM CHLORIDE 0.9% FLUSH 10 ML FLUSH IV FLUSH SCH (09:05)
[2017-10-27] MEDS: INSULIN ASPART SUPPLEMENTAL SCALE SQ SCH (09:06)
[2017-10-27] MEDS ORDERED: REGADENOSON INJ 0.4 MG/5 ML SYR ONE (11:14)
--- NOTE | 2017-10-27 12:31 | RADRPT ---
EXAM DATE/TIME: 10/27/2017 11:02 [facility] COMPARISON: No previous studies available for comparison. INDICATIONS : Substernal chest pain. Angina. DOSE: 26.4 mCi Tc99m Myoview at stress. 8.6 mCi Tc99m Myoview at rest. 0.4 mg Lexiscan STRESS SYMPTOMS: None noted. EJECTION FRACTION: > 70% MEDICAL HISTORY : Hypertension. Diabetes mellitus type 2. SURGICAL HISTORY : Appendectomy. Colostomy. Coronary artery stent. ENCOUNTER: Initial ACUITY: 1 day PAIN SCALE: 6/10 LOCATION: Substernal chest TECHNIQUE: The patient underwent pharmacologic stress with infusion of prescribed dose. Continuous ECG tracing was monitored during stress. Gated SPECT imaging was performed after stress and conventional SPECT i maging was performed at rest. The examination was performed on a SPECT/CT scanner, both attenuation and non-corrected datasets were reviewed. FINDINGS: DISTRIBUTION: The maximum perfused segment at stress is in the inferior wall. PERFUSION STUDY: The pattern of perfusion at stress is within normal limits. GATED STUDY: There is intact wall motion and thickening without hypokinetic or dyskinetic segments. CONCLUSION: No reversible perfusion defects to suggest ischemia. Normal ejection fraction. RISK CATEGORY: Low (<1% Annual Mortality Rate) Fran Medrano MD on October 27, 2017 at 12:28 Board Certified Radiologist. This report was verified electronically.
[2017-10-27 12:40] VITALS: BP 107/67; PULSE 67; RESP 16; TEMP 98.2; O2SAT 97
[2017-10-27] MEDS: METOPROLOL TARTRATE 25 MG TAB PO SCH (12:42)
[2017-10-27 12:44] VITALS: PULSE 76
--- NOTE | 2017-10-27 12:49 | HHI.DCPOC ---
Discharge Care Plan Diagnosis: (1) Atypical chest pain (2) Diabetes mellitus, type II (3) Tobacco abuse Goals to Promote Your Health * To prevent worsening of your condition and complications * To maintain your health at the optimal level Directions to Meet Your Goals Take your medications as prescribed Follow your dietary instruction Follow activity as directed Keep your appointments as scheduled Take your immunizations and boosters as scheduled If your symptoms worsen call your PCP, if no PCP go to Urgent Care Center or Emergency Room Smoking is Dangerous to Your Health. Avoid second hand smoke Call the 24-hour hour crisis hotline for domestic abuse at Katie Casillas Oct 27, 2017 12:49
--- NOTE | 2017-10-27 13:42 | EKG ---
Date Performed: 10/26/2017 Time Performed: 19:47:48 PTAGE: 47 years EKG: Sinus rhythm NORMAL ECG PREVIOUS TRACING : 10/26/2017 17.46 Since previous tracing, no significant change noted DOCTOR: Kel Guillaume Interpretating Date/Time 10/27/2017 13:41:23
--- NOTE | 2017-10-27 13:43 | EKG ---
Date Performed: 10/26/2017 Time Performed: 17:46:24 PTAGE: 47 years EKG: Sinus rhythm NORMAL ECG PREVIOUS TRACING : 10/26/2017 16.51 Since previous tracing, no significant change noted DOCTOR: Kel Guillaume Interpretating Date/Time 10/27/2017 13:42:21
[2017-10-27 13:45] VITALS: BP 107/62; PULSE 71; RESP 18; TEMP 98.1; O2SAT 95
--- NOTE | 2017-10-27 14:18 | TR ---
Date Performed: 10/27/2017 Time Performed: 11:21:21 DOCTOR: Kel Guillaume DRUG LIST: CLINICAL HISTORY: CHEST PAIN REASON FOR TEST: CHEST PAIN REASON FOR ENDING: OBSERVATION: CONCLUSION: Lexiscan stress test was performed under standard four minute protocol. Radionuclid e was injected one minute prior to ending the test. No electrocardiographic abormalities were present to suggest ischemia. Nuclear imaging and interpretation are pending. COMMENTS:
== END 2017-10-27 14:11 | disposition home or self-care (01) ==
LOC: NEPD 11:25 → NEDA 16:13 → NEPFCDU 17:03
DX: R07.89 Other chest pain (principal); I25.10 Atherosclerotic heart disease of native coronary artery without angina pectoris; E11.9 Type 2 diabetes mellitus without complications; F10.10 Alcohol abuse, uncomplicated; R42 Dizziness and giddiness; R10.32 Left lower quadrant pain; R11.0 Nausea; I20.9 Angina pectoris, unspecified; R61 Generalized hyperhidrosis; R06.00 Dyspnea, unspecified; I10 Essential (primary) hypertension; E78.00 Pure hypercholesterolemia, unspecified; I25.2 Old myocardial infarction; K86.1 Other chronic pancreatitis; E03.9 Hypothyroidism, unspecified; F41.9 Anxiety disorder, unspecified; F17.200 Nicotine dependence, unspecified, uncomplicated; Z95.5 Presence of coronary angioplasty implant and graft; Z79.4 Long term (current) use of insulin; Z79.899 Other long term (current) drug therapy; Z79.82 Long term (current) use of aspirin
CPT/HCPCS: 74177; 78452; 80053; 81001; 82550; 82552; 82948; 83690; 84484; 85025; 93005; 93017; 96372; 96374; 99285; A9502; G0378; J1815; J1885; J2785; J7030; Q9967

== ENCOUNTER 2018-04-08 09:10 | Inpatient (IN) | payer OTHER, MEDICARE ==
[~2018-04-08] VITALS: Ht 180.3 cm; Wt 70.7 kg
[~2018-04-08 09:10] MED LIST changes: -HYDR-3580 PO; -PLAV75TA29 PO
[2018-04-08 09:34] VITALS: BP 154/98; PULSE 116; RESP 18; TEMP 98.5; O2SAT 98
--- NOTE | 2018-04-08 09:36 | PD ---
HPI Chief Complaint: Psychiatric Symptoms Time Seen by Provider: 09:18 Travel History International Travel<30 days: No Contact w/Intl Traveler<30days: No Traveled to known affect area: No History of Present Illness HPI This is a 47-year-old male brought in by law enforcement under Abreu act. According to the Abreu act report the patient had called the suicide hotline and said that he had a gun and was going to kill himself. Patient reports being depressed for weeks. He reports being suicidal and says his plan is to shoot himself in the head. He denies having access to a gun. He reports history of suicidal attempts. Denies illicit drug use. Reports alcohol use. Smells of alcohol and says he has been drinking a little bit this morning. Denies auditory or visual hallucinations. Denies homicidal ideations. Onset unknown. Duration unknown. No known aggravating or relieving factors. Symptoms are moderate to severe in severity. [facility] care provider is the [facility]. No known allergies. History of hypertension and insulin-dependent diabetes. Has no other medical complaints. Denies chest pain, shortness of breath, abdominal pain, nausea, vomiting, change in urine or stool. No other modifying factors or associated signs and symptoms. PFSH Past Medical History Blood Disorders: No Anxiety: Yes Depression: Yes Cancer: No Cardiovascular Problems: Yes (HTN, CORONARY STENT ) High Cholesterol: Yes Diabetes: Yes Endocrine: Yes Gastrointestinal Disorders: Yes (COLOSTOMY WITH REVERSAL) Genitourinary: No Hypertension: Yes Immune Disorder: No Musculoskeletal: Yes (LEFT SHOULDER DISLOCATES EASILY) Neurologic: No Psychiatric: Yes Reproductive: No Respiratory: No Thyroid Disease: Yes ?: Not Past Surgical History Abdominal Surgery: Yes (APPY WITH COLOSTOMY) Cardiac Surgery: Yes (1 STENT RCA) Pacemaker: No Other Surgery: Yes Social History Alcohol Use: Yes (hx of daily use. now occ ) Tobacco Use: Yes (1/2 PPD) Substance Use: No Allergies-Medications (Allergen,Severity, Reaction): Coded Allergies: No Known Allergies (Verified Adverse Reaction, Unknown, 10/26/17) Reported Meds & Prescriptions Reported Meds & Active Scripts Active Puja-Colace (Sennosides-Docusate Sodium) 8.6-50 Mg Tab 1 Tab PO BID PRN Reported Metformin (Metformin HCl) 1,000 Mg Tab 1,000 Mg PO BIDPC With meals Lisinopril 5 Mg Tab 5 Mg PO DAILY Metoprolol Tartrate 25 Mg Tab 12.5 Mg PO BID Synthroid (Levothyroxine Sodium) 25 Mcg Tab 25 Mcg PO DAILY Review of Systems Except as stated in HPI: all other systems reviewed are Neg Physical Exam Narrative GENERAL: Well-nourished, well-developed male patient, in no acute distress; disheveled, smells of EtOH SKIN: Warm and dry. HEAD: Atraumatic. Normocephalic. EYES: Pupils equal and round. ENT: Mucosa pink and moist. NECK: Supple. Trachea midline. CARDIOVASCULAR: Regular rate and rhythm. No murmur appreciated. RESPIRATORY: No accessory muscle use. Clear to auscultation. Breath sounds equal bilaterally. GASTROINTESTINAL: Abdomen soft, non-tender, nondistended. Hepatic and splenic margins not palpable. Bowel sounds are active 4 quadrants. MUSCULOSKELETAL: No obvious deformities. No clubbing. No cyanosis. No edema. NEUROLOGICAL: Awake and alert. Oriented 3. No obvious cranial nerve deficits. Motor grossly within normal limits. Normal speech. Moves all extremities. 5/5 strength to all extremities. PSYCHIATRIC: No delusional thought processes. No hallucinations. Data Data Last Documented VS Vital Signs Date Time Temp Pulse Resp B/P (MAP) Pulse Ox O2 Delivery O2 Flow Rate FiO2 04/08/18 09:34 98.5 116 18 154/98 (116) 98 Room Air Orders Orders Complete Blood Count With Diff (04/08/18 09:17) Comprehensive Metabolic Panel (04/08/18 09:17) Thyroid Stimulating Hormone (04/08/18 09:17) Psych Screen (04/08/18 09:17) Drug Screen, Random Urine (04/08/18 09:17) Alcohol (Ethanol) (04/08/18 09:17) Salicylates (Aspirin) (04/08/18 09:17) Tylenol (Acetaminophen) (04/08/18 09:17) MDM Medical Decision Making Medical Screen Exam Complete: Yes Emergency Medical Condition: Yes Medical Record Reviewed: Yes Differential Diagnosis Suicidal threat, depression, medical clearance for psychiatric admission Narrative Course Patient presents under a Abreu act. Physical examination and vital signs are essentially unremarkable. Patient has no medical complaints to report. Psych screen has been ordered. If the laboratory results are unremarkable, the patient will be medically cleared for psychiatric evaluation and disposition. Diagnosis Primary Impression: Medical clearance for psychiatric admission Condition: Stable Fidelia Flores April 08, 2018 09:36
[2018-04-08 10:53] LABS: BASOPHIL # 0.1 TH/MM3 (0-0.2); BASOPHIL % 1.1 % (0.0-2.0); EOSINOPHIL # 0.4 TH/MM3 (0-0.4); EOSINOPHIL % 5.7 % (0.0-4.0); HEMATOCRIT 43.2 % (39.0-51.0); HEMOGLOBIN 14.8 GM/DL (13.0-17.0); LYMPHOCYTE # 2.3 TH/MM3 (1.0-4.8); MEAN CELL VOLUME 91.2 FL (80.0-100.0); MEAN CORPUSCULAR HEMOGLOBIN 31.4 PG (27.0-34.0); MEAN CORPUSCULAR HGB CONC 34.4 % (32.0-36.0); MEAN PLATELET VOLUME 8.3 FL (7.0-11.0); MONO % 7.2 % (0.0-8.0); MONOCYTE # 0.5 TH/MM3 (0-0.9); PLATELET COUNT 179 TH/MM3 (150-450); RED BLOOD COUNT 4.74 MIL/MM3 (4.50-5.90); RED CELL DISTRIBUTION WIDTH 13.4 % (11.6-17.2); WHITE BLOOD COUNT 7.3 TH/MM3 (4.0-11.0)
[2018-04-08 11:18] LABS: ALT (GPT) 51 U/L (12-78); AST (GOT) 60 U/L (15-37); BICARBONATE 25.4 MEQ/L (21.0-32.0); BLOOD UREA NITROGEN 14 MG/DL (7-18); CALCIUM 8.4 MG/DL (8.5-10.1); CHLORIDE 96 MEQ/L (98-107); CREATININE 0.98 MG/DL (0.60-1.30); GLOMERULAR FILTRATION RATE 82 ML/MIN (>89); GLUCOSE,RANDOM 303 MG/DL (74-106); SODIUM (NA) 138 MEQ/L (136-145)
[2018-04-08 11:35] LABS: ACETAMINOPHEN LESS THAN 2.0 MCG/ML (10.0-30.0); ALKALINE PHOSPHATASE 92 U/L (45-117); TOTAL BILIRUBIN ADULT 0.6 MG/DL (0.2-1.0); TOTAL PROTEIN 7.2 GM/DL (6.4-8.2)
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
[2018-04-08] MEDS ORDERED: CHOL10008 (13:52)
[2018-04-08] MEDS ORDERED: LANTINJ SQ ×2 (14:08→14:09)
[2018-04-08] MEDS ORDERED: NOVORP2 SQ (14:11)
[2018-04-08] MEDS ORDERED: ALUMINUM/MAGNESIUM/SIMETH 30 ML CUP PO PRN (14:15)
[2018-04-08] MEDS ORDERED: MAGNESIUM HYDROXIDE SUSP 30 ML CUP PO PRN (14:15)
[2018-04-08] MEDS ORDERED: ACETAMINOPHEN 325 MG TAB PO PRN (14:15)
[2018-04-08] MEDS: NICOTINE 21 MG/24 HR PATCH T-DERMAL SCH (15:00)
[2018-04-08 15:45] VITALS: BP 138/88; PULSE 92; TEMP 98.7; O2SAT 96
[2018-04-08] MEDS ORDERED: FLUMAZENIL 0.5 MG/5 ML VIAL IV PUSH PRN (16:00)
[2018-04-08] MEDS ORDERED: LORazepam 2 MG TAB PO PRN (16:00)
[2018-04-08] MEDS ORDERED: LORazepam 2 MG/ML VIAL IV PUSH PRN ×4 (16:00)
[2018-04-08 18:25] VITALS: BP 174/94; PULSE 101; RESP 20; TEMP 98; O2SAT 98
[2018-04-08 18:36] VITALS: BP 174/94; PULSE 101; RESP 20; TEMP 98; O2SAT 98
[2018-04-08] MEDS ORDERED: GLUCAGON 1 MG/ML VIAL OTHER PRN (19:00)
[2018-04-08] MEDS ORDERED: DEXTROSE 50% IN WATER 50 ML VIAL(D50) IV PUSH PRN (19:00)
[2018-04-08] MEDS: metFORMIN HCL 500 MG TAB PO SCH (20:20)
[2018-04-08] MEDS: LOW DOSE INSULIN NOVOLOG SUPPLEMENTAL SCALE SQ SCH (20:52)
[2018-04-08] MEDS: REMOVE OLD PATCH T-DERMAL SCH (20:53)
[2018-04-08] MEDS: LORazepam 1 MG TAB PO PRN (20:58)
[2018-04-08 20:59] VITALS: BP 166/88; PULSE 87
--- NOTE | 2018-04-08 21:53 | RADRPT ---
EXAM DATE/TIME: 04/08/2018 21:21 [facility] COMPARISON: No previous studies available for comparison. INDICATIONS : Trauma; fall. RADIATION DOSE: 56.35 CTDIvol (mGy) MEDICAL HISTORY : Cardiovascular disease. Hypertension. Diabetes mellitus type 2. SURGICAL HISTORY : Appendectomy. Cholecystectomy. ENCOUNTER: Initial ACUITY: 1 day PAIN SCALE: 5/10 LOCATION: cranial TECHNIQUE: Multiple contiguous axial images were obtained of the head. Using automated exposure control and adj ustment of the mA and/or kV according to patient size, radiation dose was kept as low as reasonably a chievable to obtain optimal diagnostic quality images. DICOM format image data is available electro nically for review and comparison. FINDINGS: CEREBRUM: The ventricles are normal for age. No evidence of midline shift, mass lesion, hemorrhage or acute in farction. No extra-axial fluid collections are seen. POSTERIOR FOSSA: The cerebellum and brainstem are intact. The 4th ventricle is midline. The cerebellopontine angle i s unremarkable. EXTRACRANIAL: The visualized portion of the orbits is intact. Deviation of the nasal septum. Mild ethmoid mucosal t hickening. SKULL: The calvaria is intact. No evidence of skull fracture. CONCLUSION: 1. No acute intracranial abnormality. Dileep Torres MD on April 08, 2018 at 21:50 Board Certified Radiologist. This report was verified electronically.
[2018-04-09 00:03] VITALS: BP 142/76; PULSE 82
[2018-04-09] MEDS: LORazepam 1 MG TAB PO PRN ×2 (00:06→21:59)
[2018-04-09 05:22] VITALS: BP 144/86; PULSE 78; RESP 16; TEMP 98.2; O2SAT 98
[2018-04-09] MEDS ORDERED: INSULIN DETEMIR 100 UNITS/ML VIAL SQ SCH ×2 (08:15→21:00)
[2018-04-09] MEDS ORDERED: [UNRECOGNIZED DRUG - OTHER] SQ SCH ×2 (08:31→19:00)
[2018-04-09] MEDS ORDERED: LANTUS SQ SCH ×2 (08:31→19:00)
[2018-04-09] MEDS: LOW DOSE INSULIN NOVOLOG SUPPLEMENTAL SCALE SQ SCH ×4 (09:05→21:25)
[2018-04-09] MEDS: LISINOPRIL 5 MG TAB PO SCH (09:07)
[2018-04-09] MEDS: CHOLECALCIFEROL (VIT D3) 1000 UNIT TAB PO SCH (09:07)
[2018-04-09] MEDS: metFORMIN HCL 500 MG TAB PO SCH ×2 (09:07→21:24)
[2018-04-09] MEDS: NICOTINE 21 MG/24 HR PATCH T-DERMAL SCH (09:09)
[2018-04-09 10:15] LABS: BICARBONATE 31.7 MEQ/L (21.0-32.0); BLOOD UREA NITROGEN 10 MG/DL (7-18); CALCIUM 9.6 MG/DL (8.5-10.1); CHLORIDE 93 MEQ/L (98-107); CHOLESTEROL 134 MG/DL (120-200); CHOLESTEROL/ HDL RATIO 2.93 RATIO; CREATININE 0.68 MG/DL (0.60-1.30); GLOMERULAR FILTRATION RATE 125 ML/MIN (>89); GLUCOSE,RANDOM 252 MG/DL (74-106); HDL CHOLESTEROL 45.6 MG/DL (40.0-60.0); LDL CHOLESTEROL 69 MG/DL (0-99); SODIUM (NA) 135 MEQ/L (136-145); TRIGLYCERIDES 95 MG/DL (42-150)
[2018-04-09] MEDS: LEVOTHYROXINE SODIUM 25 MCG TAB PO SCH (10:31)
[2018-04-09] MEDS ORDERED: hydrOXYzine HCL 50 MG TAB PO PRN (12:15)
--- NOTE | 2018-04-09 12:34 | HHI.HP ---
Provisional Diagnosis Admission Date April 08, 2018 at 14:09 [facility] I. 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 Express and informed consent means consent voluntarily given in writing, by a competent person, after sufficient explanation and disclosure of the subject matter involved to enable the person to make a knowing and willful decision without any element of force, fraud, deceit, duress, or other form of constraint or coercion. This person is 18 years of age or older, is not now known to be incompetent to consent to treatment with a guardian advocate, and does not have a health care surrogate or proxy currently making medical treatment decisions. I have found this person to be one of the following: [xxxx] Competent to provide express and informed consent, as defined above, for voluntary admission to this facility and is competent to provide express and informed consent for treatment. He/she has the consistent capacity to make well reasoned, willful, and knowing decisions concerning his or her medical or mental health treatment. The person fully and consistently understands the purpose of the admission for examination/placement and is fully capable of personally exercising all rights assured under [place] Incompetent to provide express and informed consent to voluntary admission, and this is incompetent to provide express and informed consent to treatment. The person must be transferred to involuntary status and a petition for a guardian advocate filed with the Circuit Court. [] Refusing to provide express and informed consent to voluntary admission but is competent to provide express and informed consent for treatment. The person must be discharged or transferred to involuntary status. Form shall be completed within 24 hours of a person's arrival at the receiving facility and filed in the clinical record of each person: 1. Admitted on a voluntary basis 2. Permitted to provide express and informed consent to his/her own treatment 3. Allowed to transfer from involuntary to voluntary status 4. Prior to permitting a person to consent to his or her own treatment after having been previously found incompetent to consent to treatment. History of Present Illness Capacity: Has Capacity HPI Patient is a 47-year-old white male comes for [place] under Abreu act. History of depression and suicidal ideation did call a hotline through the [place] [facility] voices need to talk to someone who was then Brady acted. Patient was seen screen in our ED urine toxicology negative blood alcohol level of 322. Review of EMR shows blood alcohol levels measured 03/25/2011 of 288, and on 2009 of 290. Patient was seen in his room with nurse Eloisa, Counselor jeremiah. He is alert and oriented and slender white male who appears somewhat younger than his stated age. 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 He was unable to continue his career due to significant visual issues leading to him becoming legally blind. He is also of the [employer]. He sees medical care through the [place] [facility]. He has had losses recently of his profession, from his , loss of some friends through . There is also significant alcohol problem as noted above with his blood alcohol levels. He states recently he has been drinking every day though he denies detox, rehab, he denies any withdrawal symptoms. He denies any legal issues related to drinking. He denies other drug use. He states he lives by himself though some work out of his home for [employer]. He states over the past few days his depression has increased somewhat in those taken [id number] sleep aid that helps him sleep, he says his appetite is down somewhat as concentration and attention is fair, there is increased paranoia around crowds and there is some social isolation. Though he states he does have friends he socializes with more during the day. He states he has had vague suicidal ideation in the past but never acted on it. He denies any prior psychiatric hospitalization, we does acknowledge seeing a psychiatrist 5 or 6 years ago for a brief period of time. He denies any physical or sexual abuse. States he does have 1 sibling that has alcohol issues also. We did discuss medications and treatment. Patient is going to stand a voluntary basis we will start him on Remeron 50 mg at at bedtime. We will continue the ciwa protocol at this time. At this point feel the patient does have capacity to sign voluntary of this out with Brady acted by the patient was signed voluntary and is willing to stay here another few days to monitor any withdrawal symptoms and get him started on his antidepressant. He states he does have an appointment with psychiatrist in the [place] [facility] about the middle of April. Review of Systems Except as stated in HPI: all other systems reviewed are Neg Past Psych History Psychological trauma history Patient denies Violence risk - others (6 mos) Low Violence risk - self (6 mos) Low to moderate Substance Abuse History Drugs/Alcohol past 12 months Active alcohol abuser Past Family Social History Coded Allergies: No Known Allergies (Verified Adverse Reaction, Unknown, 04/08/18) Per pt. Reported Medications Insulin Human Regular Inj (Novolin R Inj) 1,000 Unit/10 Ml Vial, 0 SQ DIRECTED for Blood Sugar Management, #10 ML 0 Refills Sliding Scale As Directed. 04/08/18 Insulin Glargine Inj (Lantus Solostar Pen Inj) 300 Unit/3 Ml Pen, 27 UNITS SQ Daily 1900 for Blood Sugar Management, PEN 0 Refills 04/08/18 Insulin Glargine Inj (Lantus Solostar Pen Inj) 300 Unit/3 Ml Pen, 10 UNITS SQ DAILY 0700 for Blood Sugar Management, PEN 0 Refills 04/08/18 Cholecalciferol (Vitamin D3) 1,000 Unit Cap, 1000 UNITS DAILY for Nutritional Supplement, #1 BOTTLE 0 Refills 04/08/18 Metformin (Metformin) 1,000 Mg Tab, 1000 MG PO BIDPC for Blood Sugar Management , #60 TAB 0 Refills With meals 03/02/17 Lisinopril (Lisinopril) 5 Mg Tab, 5 MG PO DAILY for Blood Pressure Management, # 30 TAB 0 Refills 03/02/17 Levothyroxine (Synthroid) 25 Mcg Tab, 25 MCG PO DAILY for Thyroid, #30 TAB 0 Refills 03/02/17 Discontinued Reported Medications Metoprolol Tartrate (Metoprolol Tartrate) 25 Mg Tab, 12.5 MG PO BID, #60 TAB 0 Refills 03/02/17 Discontinued Scripts Sennosides-Docusate Sodium (Puja-Colace) 8.6-50 Mg Tab, 1 TAB PO BID Y for Constipation, #20 TAB 0 Refills Prov:Fran Rey MD 03/03/17 Current Medications Medications (Trade) Dose Ordered Sig/Sb Route Start Time Stop Time Status Last Admin (Tylenol) 650 mg Q4H PRN PO 04/08/18 14:15 04/09/18 06:02 (Milk Of Magnesia Liq) 30 ml DAILY PRN PO 5/20/18 14:15 (Mag-Al Plus Susp Liq) 30 ml Q6H PRN PO 04/08/18 14:15 (Habitrol 21 Mg Patch.24 Hr) 1 patch DAILY T-DERMAL 04/08/18 14:15 04/09/18 09:09 Miscellaneous Information 1 HS T-DERMAL 04/08/18 21:00 04/08/18 20:53 (Glucophage) 1,000 mg BID PO 04/08/18 21:00 04/09/18 09:07 (Prinivil) 5 mg DAILY PO 04/09/18 09:00 04/09/18 09:07 (Vitamin D3) 1,000 units DAILY PO 04/09/18 09:00 04/09/18 09:07 (Romazicon Inj) 0.2 mg Q1M PRN IV PUSH 04/08/18 16:00 (Ativan) 1 mg Q4H PRN PO 04/08/18 16:00 04/09/18 00:06 (Ativan Inj) 1 mg Q4H PRN IV PUSH 04/08/18 16:00 (Ativan) 2 mg Q2H PRN PO 04/08/18 16:00 04/09/18 06:01 (Ativan Inj) 2 mg Q2H PRN IV PUSH 04/08/18 16:00 (Ativan Inj) 2 mg Q1H PRN IV PUSH 04/08/18 16:00 (Ativan Inj) 2 mg Q15M PRN IV PUSH 04/08/18 16:00 (D50w (Vial) Inj) 50 ml UNSCH PRN IV PUSH 04/08/18 19:00 (Glucagon Inj) 1 mg UNSCH PRN OTHER 04/08/18 19:00 (NovoLOG SUPPLEMENTAL SCALE) 1 ACHS SLIDING SCALE SQ 04/08/18 21:00 04/09/18 12:08 (Synthroid) 25 mcg DAILY@0600 PO 04/09/18 08:20 04/09/18 10:31 Patient Own Medication PT OWN MED: ISABEL... DAILY@1900 SQ 04/09/18 19:00 Future Hold Patient Own Medication PT OWN MED: ISABEL... DAILY@0700 SQ 04/09/18 08:31 Future Hold Family Psych History Patient denies he has a sibling with alcohol problems Social History Patient recently , no children lives by himself Patient's Strengths (min. 2) Patient is verbal able [facility] Physical Exam Patient medically cleared in the ED at the present time. He is sitting quietly in his room he is in no acute distress, he is in no respiratory distress, no complaints of abdominal pain. Patient moving all 4 extremities without difficulty. No abnormal motor movements noted Vital Signs Vital Signs Date Time Temp Pulse Resp B/P (MAP) Pulse Ox O2 Delivery O2 Flow Rate FiO2 04/09/18 05:22 98.2 78 16 144/86 (105) 98 04/08/18 15:45 Room Air Lab Results Test 04/09/18 08:50 Blood Urea Nitrogen 10 MG/DL Creatinine 0.68 MG/DL Random Glucose 252 MG/DL Calcium Level 9.6 MG/DL Sodium Level 135 MEQ/L Potassium Level 4.0 MEQ/L Chloride Level 93 MEQ/L Carbon Dioxide Level 31.7 MEQ/L Anion Gap 10 MEQ/L Estimat Glomerular Filtration Rate 125 ML/MIN Triglycerides Level 95 MG/DL Cholesterol Level 134 MG/DL LDL Cholesterol 69 MG/DL HDL Cholesterol 45.6 MG/DL Cholesterol/HDL Ratio 2.93 RATIO Mental Status Examination Appearance: Disheveled Consciousness: Alert Orientation: x4 Motor Activity: Normal gait Speech: Unremarkable Language: Adequate Fund of Knowledge: Adequate Attention and Concentration: Easily Distracted Memory: Impaired (unable to recall new insulin he was placed on ) Mood: Sad Affect: Sad, Flat, Blunt Thought Process & Associations: Logical Thought Content: Preoccupations (just wants to be discharged) Hallucination Type: None Delusion Type: None Suicidal Ideation: Yes ([facility], today he is trying to convince provider that he was just depressed and wanted to talk ) Suicidal Plan: No Suicidal Intention: Yes (pt VERY depressed and unsure if patient understands his new insulin. ) Homicidal Ideation: No Homicidal Plan: No Homicidal Intention: No Insight: Adequate Judgment: Poor (good insight, but current judgement is poor ) Assessment & Plan Problem List: (1) Major depression ICD Codes: F32.9 - Major depressive disorder, single episode, unspecified Status: Chronic (2) Chronic alcohol abuse ICD Codes: F10.10 - Alcohol abuse, uncomplicated Status: Acute Assessment & Plan Estimated LOS: 3-5 days patient does make criteria for further inpatient psychiatric treatment and assessment and monitoring, but I feel he does have capacity of the sound of the Abreu act longer sign voluntary. We will start him on Remeron at at bedtime we will continue the ciwa protocol. Discharge Planning Return to his own home with follow-up outpatient [place] [facility] Request HC Surrog/Guard Advoc?: No Problem Qualifiers (1) Major depression: Qualified Codes: F33.1 - Major depressive disorder, recurrent, moderate Benjamin Jessica MD April 09, 2018 12:34
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
[2018-04-09] MEDS: INSULIN DETEMIR 100 UNITS/ML VIAL SQ SCH (12:48)
[2018-04-09 16:26] LABS: HEMOGLOBIN A1C 10.5 % (4.3-6.0)
[2018-04-09 16:57] VITALS: BP 145/66; PULSE 93; RESP 16; TEMP 98; O2SAT 98
[2018-04-09] MEDS ORDERED: metFORMIN HCL 500 MG TAB PO SCH (18:00)
[2018-04-09] MEDS: REMOVE OLD PATCH T-DERMAL SCH (21:00)
[2018-04-09] MEDS ORDERED: MIRTAZAPINE 15 MG TAB PO SCH (21:00)
[2018-04-10] MEDS: LEVOTHYROXINE SODIUM 25 MCG TAB PO SCH (06:13)
[2018-04-10 06:27] VITALS: BP 116/81; PULSE 81; RESP 17; TEMP 97.8; O2SAT 99
[2018-04-10] MEDS: LOW DOSE INSULIN NOVOLOG SUPPLEMENTAL SCALE SQ SCH ×2 (08:00→12:00)
[2018-04-10] MEDS: NICOTINE 21 MG/24 HR PATCH T-DERMAL SCH (08:29)
[2018-04-10] MEDS: INSULIN DETEMIR 100 UNITS/ML VIAL SQ SCH (08:30)
[2018-04-10] MEDS: CHOLECALCIFEROL (VIT D3) 1000 UNIT TAB PO SCH (08:31)
[2018-04-10] MEDS: metFORMIN HCL 500 MG TAB PO SCH (08:31)
[2018-04-10] MEDS: LISINOPRIL 5 MG TAB PO SCH (08:31)
[2018-04-10] MEDS ORDERED: LISINOPRIL 5 MG TAB PO SCH (09:00)
[2018-04-10] MEDS ORDERED: CHOLECALCIFEROL (VIT D3) 1000 UNIT TAB PO SCH (09:00)
[2018-04-10] MEDS ORDERED: MIRTA15 PO (09:18)
--- NOTE | 2018-04-10 09:24 | HHI.DS ---
Psychiatry Discharge Summary Inpatient Psychiatric care?: Yes Advance Directive: Yes Mental Health AdvanceDirective: No Health Care Proxy: No Admission Admission Date April 08, 2018 at 14:09 Admission Diagnosis: (1) Chronic alcohol abuse ICD Code: F10.10 - Alcohol abuse, uncomplicated (2) Major depression ICD Code: F32.9 - Major depressive disorder, single episode, unspecified Brief History Patient is a 47-year-old white male comes for [place] under Abreu act. History of depression and suicidal ideation did call a hotline through the [place] [facility] voices need to talk to someone who was then Abreu acted. Patient was seen screen in our ED urine toxicology negative blood alcohol level of 322. Review of EMR shows blood alcohol levels measured 03/25/2011 of 288, and on 2009 of 290. Patient was seen in his room with nurse Eloisa, Counselor jeremiah. He is alert and oriented and slender white male who appears somewhat younger than his stated age. 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 He was unable to continue his career due to significant visual issues leading to him becoming legally blind. He is also of the [employer]. He sees medical care through the [place] [facility]. He has had losses recently of his profession, from his , loss of some friends through . There is also significant alcohol problem as noted above with his blood alcohol levels. He states recently he has been drinking every day though he denies detox, rehab, he denies any withdrawal symptoms. He denies any legal issues related to drinking. He denies other drug use. He states he lives by himself though some work out of his home for [employer]. He states over the past few days his depression has increased somewhat in those taken [id number] sleep aid that helps him sleep, he says his appetite is down somewhat as concentration and attention is fair, there is increased paranoia around crowds and there is some social isolation. Though he states he does have friends he socializes with more during the day. He states he has had vague suicidal ideation in the past but never acted on it. He denies any prior psychiatric hospitalization, we does acknowledge seeing a psychiatrist 5 or 6 years ago for a brief period of time. He denies any physical or sexual abuse. States he does have 1 sibling that has alcohol issues also. We did discuss medications and treatment. Patient is going to stand a voluntary basis we will start him on Remeron 50 mg at at bedtime. We will continue the ciwa protocol at this time. At this point feel the patient does have capacity to sign voluntary of this out with Brady acted by the patient was signed voluntary and is willing to stay here another few days to monitor any withdrawal symptoms and get him started on his antidepressant. He states he does have an appointment with psychiatrist in the [place] [facility] about the middle of April. Tobacco Use In Past 30 Days: 5 or More Cigarettes/Day Alcohol Use: 4 or More Times Per Week Hospital Course Patient's hospital course was uneventful, patient seen in his room this morning with floor staff, chart reviewed, patient complaint medications, patient discussed with nurse. Patient showed no behavioral problems, tolerated the medication without difficulty, so he slept well, appetite is good, he denies suicidality and homicidality voices or visions. Patient is able contract to do no harm. At this time review the patient reached maximum benefit of this hospitalization. This will be discharged today to himself Rx of Remeron 15 mg # 30 one p.o. nightly with no refill. Follow-up [place] [facility]. Patient has appointment with Counselor on 05/03. Also absolute abstinence referred to AA and refer to substance abuse counseling through the [place] [facility] Results Blood Pressure 116 / 81 Vital Signs Date Time Temp Pulse Resp B/P (MAP) Pulse Ox O2 Delivery O2 Flow Rate FiO2 04/10/18 06:27 97.8 81 17 116/81 (93) 99 04/08/18 15:45 Room Air Laboratory Tests Test 04/08/18 10:23 04/08/18 10:31 04/09/18 08:50 Eosinophils (%) (Auto) 5.7 % (0.0-4.0) Random Glucose 303 MG/DL (74-106) 252 MG/DL (74-106) Calcium Level 8.4 MG/DL (8.5-10.1) Aspartate Amino Transf (AST/SGOT) 60 U/L (15-37) Chloride Level 96 MEQ/L (98-107) 93 MEQ/L (98-107) Anion Gap 17 MEQ/L (5-15) Estimat Glomerular Filtration Rate 82 ML/MIN (>89) Acetaminophen Level LESS THAN 2.0 MCG/ML Ethyl Alcohol Level 322 MG/DL (0-5) Sodium Level 135 MEQ/L (136-145) Hemoglobin A1c 10.5 % (4.3-6.0) Laboratory Results Test 04/09/18 08:50 Cholesterol Level 134 MG/DL (120-200) HDL Cholesterol 45.6 MG/DL (40.0-60.0) Hemoglobin A1c 10.5 % (4.3-6.0) LDL Cholesterol 69 MG/DL (0-99) Triglycerides Level 95 MG/DL (42-150) Summary of Procedures None done Imaging Last Impressions Head CT 04/08/18 0000 Signed Impressions: Service Date/Time: Sunday, April 08, 2018 21:21 - CONCLUSION: 1. No acute intracranial abnormality. Dileep Torres MD Pending results at discharge: No Medications # of Antipsychotic meds at D/C: 0 Approp Antipsych med options 1 - Minimum of three failed multiple trials of monotherapy. 2 - Documented plan to taper to monotherapy due to previous use of multiple meds OR cross-taper in progress at D/C. 3 - Documentation of augmentation of Clozapine. 4 - Justification other than those listed in allowable values 1-3, document here : Discharge Discharge Date: April 10, 2018 Discharge Diagnosis: (1) Major depression Diagnosis: Principal ICD Code: F32.9 - Major depressive disorder, single episode, unspecified Status: Chronic (2) Chronic alcohol abuse Diagnosis: Secondary ICD Code: F10.10 - Alcohol abuse, uncomplicated Status: Acute Pt Condition on Discharge: Stable Discharge Disposition: Discharge Home Discharge Instructions Diet Instructions: Diabetic Diet Activities you can perform: Regular-No Restrictions Scheduled Appointment: Follow-up [place] [facility] outpatient mental health services and addictions counseling Discharge Time > 30 minutes Mental Status Examination Appearance: Disheveled Consciousness: Alert Orientation: x4 Motor Activity: Normal gait Speech: Unremarkable Language: Adequate Fund of Knowledge: Adequate Attention and Concentration: Easily Distracted Memory: Impaired (unable to recall new insulin he was placed on ) Mood: Sad Affect: Sad, Flat, Blunt Thought Process & Associations: Logical Thought Content: Preoccupations (just wants to be discharged) Hallucination Type: None Delusion Type: None Suicidal Ideation: Yes (yesterday he told the [place] hotline he had a gun, today he is trying to convince provider that he was just depressed and wanted to talk ) Suicidal Plan: No Suicidal Intention: Yes (pt VERY depressed and unsure if patient understands his new insulin. ) Homicidal Ideation: No Homicidal Plan: No Homicidal Intention: No Insight: Adequate Judgment: Poor (good insight, but current judgement is poor ) Discharge/Advance Care Plan Health Problems: (1) Major depression (2) Chronic alcohol abuse Goals to promote your health * To prevent worsening of your condition and complications * To maintain your health at the optimal level Directions to meet your goals Take your medications as prescribed Follow your dietary instruction Follow activity as directed Keep your appointments as scheduled Take your immunizations and boosters as scheduled If your symptoms worsen call your PCP, if no PCP go to Urgent Care Center or Emergency Room For 12/06 questions related to your inpatient stay or results of tests pending at discharge, please contact Dr. Benjamin Jessica at Smoking is Dangerous to Your Health. Avoid second hand smoking Problem Qualifiers (1) Major depression: Qualified Codes: F33.1 - Major depressive disorder, recurrent, moderate Benjamin Jessica MD April 10, 2018 09:24
--- NOTE | 2018-04-10 12:00 | HHI.PR ---
Subjective Remarks Patient reports feeling well offers no concerns/complaints Objective Vitals Vital Signs Date Time Temp Pulse Resp B/P (MAP) Pulse Ox O2 Delivery O2 Flow Rate FiO2 04/10/18 06:27 97.8 81 17 116/81 (93) 99 04/09/18 16:57 98.0 93 16 145/66 (92) 98 Result Diagram: 04/08/18 1023 04/09/18 0850 Objective Remarks GENERAL: This is a well-nourished, well-developed patient, in no apparent distress. CARDIOVASCULAR: Regular rate and rhythm RESPIRATORY: Clear to auscultation. Breath sounds equal bilaterally. GASTROINTESTINAL: Abdomen soft, non-tender, nondistended. Normal active bowel sounds MUSCULOSKELETAL: Extremities without clubbing, cyanosis, or edema. NEURO: Alert & Oriented x4 to person, place, time, situation. Moves all ext x4 A/P Problem List: (1) Major depression ICD Code: F32.9 - Major depressive disorder, single episode, unspecified Status: Chronic (2) Chronic alcohol abuse ICD Code: F10.10 - Alcohol abuse, uncomplicated Status: Acute (3) Insulin dependent diabetes mellitus ICD Code: E11.9 - Type 2 diabetes mellitus without complications; Z79.4 - shelter (current) use of insulin Status: Acute (4) Hx of coronary artery disease ICD Code: Z86.79 - Personal history of other diseases of the circulatory system (5) Tobacco abuse ICD Code: Z72.0 - Tobacco use Status: Chronic (6) Hypothyroidism ICD Code: E03.9 - Hypothyroidism, unspecified Status: Chronic (7) Hypertension associated with diabetes ICD Code: E11.59 - Type 2 diabetes mellitus with other circulatory complications; I10 - Essential (primary) hypertension Status: Chronic Assessment and Plan 1. Depression, suicidality: Management per psychiatry. 2. Insulin-dependent diabetes mellitus: Poorly controlled. Hemoglobin A1c 10.5 , patient reports this has improved from 14 the last time HA1c was checked. ? compliance. Glucose improved today 80 this AM. continue patient's home long- acting insulin. He uses Lantus 10 units in the morning and 27 units in the evening. Monitor Accu-Cheks and cover with sliding scale insulin. Diabetic diet. Continue metformin. 3. Coronary artery disease: Patient denies chest pain or dyspnea today. Continue metoprolol, CHUCHO inhibitor. Monitor for symptoms. 4. Hypothyroidism: Continue Synthroid. 5. Hypertension: Continue metoprolol, lisinopril. 6. Tobacco abuse: Counseled to quit smoking. 7. Alcohol abuse: Continue CIWA protocol. Supervising physician Dr. Bui Problem Qualifiers (1) Major depression: Qualified Codes: F33.1 - Major depressive disorder, recurrent, moderate [place] April 10, 2018 12:00
== END 2018-04-10 15:15 | disposition home or self-care (01) | DRG 885 ==
LOC: NEPJ 09:10 → NEDA 14:09 → H260 15:51
PROVIDERS: ADMIT Psychiatry & Neurology Psychiatry; ATTEND Psychiatry & Neurology Psychiatry
DX: F33.1 Major depressive disorder, recurrent, moderate (principal); E11.69 Type 2 diabetes mellitus with other specified complication; R45.851 Suicidal ideations; E11.65 Type 2 diabetes mellitus with hyperglycemia; S09.90XA Unspecified injury of head, initial encounter; S80.811A Abrasion, right lower leg, initial encounter; F41.9 Anxiety disorder, unspecified; E78.00 Pure hypercholesterolemia, unspecified; E07.9 Disorder of thyroid, unspecified; F10.129 Alcohol abuse with intoxication, unspecified; Y90.8 Blood alcohol level of 240 mg/100 ml or more; I25.10 Atherosclerotic heart disease of native coronary artery without angina pectoris; E03.9 Hypothyroidism, unspecified; I15.2 Hypertension secondary to endocrine disorders; H35.52 Pigmentary retinal dystrophy; E78.5 Hyperlipidemia, unspecified; H54.8 Legal blindness, as defined in USA; F17.210 Nicotine dependence, cigarettes, uncomplicated; Z79.4 Long term (current) use of insulin; Z79.84 Long term (current) use of oral hypoglycemic drugs; Z95.5 Presence of coronary angioplasty implant and graft; Y93.55 Activity, bike riding; V18.4XXA Pedal cycle driver injured in noncollision transport accident in traffic accident, initial encounter
CPT/HCPCS: 70450; 80048; 80053; 80061; 80307; 82948; 83036; 84443; 85025; 99285; J1815